=== PATIENT | male | born 1955 | race Caucasian/White ===

== ENCOUNTER 2017-12-21 15:17 | Emergency (ER) | payer MEDICARE, MEDICAID ==
[2017-12-21 15:57] LABS: ADD MAN DIFF? NO
[2017-12-21 16:01] LABS: BASO % 0 % (0-3); EOS # 0.2 x10^3/uL (0.0-0.7); EOS % 3 % (0-3); HEMATOCRIT 38.6 % (39.0-53.0); HEMOGLOBIN 12.5 g/dL (13.0-17.5); LYMPH % 19 % (24-48); MEAN CORPUSCULAR HEMOGLOBIN 28 pg (25-35); MEAN CORPUSCULAR HGB CONC 32 g/dL (31-37); MEAN CORPUSCULAR VOLUME 86 fL (79-100); MONO # 0.6 x10^3/uL (0.0-1.1); MONO % 12 % (0-9); NEUT # 3.3 x10^3uL (1.8-7.7); NEUT % 65 % (31-73); PLATELET COUNT 129 x10^3/uL (140-400); WHITE BLOOD COUNT 5.1 x10^3/uL (4.0-11.0)
[2017-12-21 16:17] LABS: ANION GAP 11 (6-14); BLOOD UREA NITROGEN 26 mg/dL (8-26); BUN/CREATININE RATIO 19 (6-20); CARBON DIOXIDE 28 mmol/L (21-32); CHLORIDE 104 mmol/L (98-107); CREATININE 1.4 mg/dL (0.7-1.3); GLUCOSE 143 mg/dL (70-99); POTASSIUM 4.7 mmol/L (3.5-5.1); SODIUM 143 mmol/L (136-145)
[2017-12-21 16:20] LABS: INR 1.6 (0.8-1.1); PROTHROMBIN TIME PATIENT 17.8 SEC (11.7-14.0)
[2017-12-21 16:22] LABS: ALBUMIN 3.8 g/dL (3.4-5.0); ALBUMIN/GLOBULIN RATIO 1.1 (1.0-1.7); ALK PHOS 98 U/L (46-116); ALT (SGPT) 19 U/L (16-63); AST (SGOT) 23 U/L (15-37); TOTAL BILIRUBIN 0.5 mg/dL (0.2-1.0); TOTAL PROTEIN 7.3 g/dL (6.4-8.2)
[2017-12-21] MEDS: ASPIRIN CHEWABLE 81 MG TABLET. PO (16:24)
[2017-12-21 16:25] LABS: TROPONINI < 0.017 ng/mL (0.000-0.055)
== END 2017-12-21 18:15 | disposition home or self-care (01) ==
LOC: ER 15:17
DX: R07.89 Other chest pain (principal); E11.9 Type 2 diabetes mellitus without complications; E78.00 Pure hypercholesterolemia, unspecified; I10 Essential (primary) hypertension; Z95.2 Presence of prosthetic heart valve; Z79.01 Long term (current) use of anticoagulants; Z88.8 Allergy status to other drugs, medicaments and biological substances
CPT/HCPCS: 36415; 71045; 80053; 84484; 85025; 85610; 93005; 99285-25

== ENCOUNTER 2018-03-14 13:41 | Emergency (ER) | payer MEDICARE, MEDICAID ==
[2018-03-14 14:42] LABS: ADD MAN DIFF? NO
[2018-03-14 14:45] LABS: BASO % 1 % (0-3); EOS # 0.1 x10^3/uL (0.0-0.7); EOS % 3 % (0-3); HEMATOCRIT 35.3 % (39.0-53.0); HEMOGLOBIN 11.3 g/dL (13.0-17.5); LYMPH # 0.7 x10^3/uL (1.0-4.8); LYMPH % 19 % (24-48); MEAN CORPUSCULAR HEMOGLOBIN 27 pg (25-35); MEAN CORPUSCULAR HGB CONC 32 g/dL (31-37); MEAN CORPUSCULAR VOLUME 83 fL (79-100); MONO # 0.5 x10^3/uL (0.0-1.1); MONO % 12 % (0-9); NEUT # 2.5 x10^3uL (1.8-7.7); NEUT % 66 % (31-73); PLATELET COUNT 106 x10^3/uL (140-400); RED BLOOD COUNT 4.25 x10^6/uL (4.30-5.70); RED CELL DISTRIBUTION WIDTH 14.6 % (11.5-14.5); WHITE BLOOD COUNT 3.8 x10^3/uL (4.0-11.0)
[2018-03-14 14:55] LABS: INR 2.9 (0.8-1.1); PARTIAL THROMBOPLASTIN TIME 38 SEC (24-38); PROTHROMBIN TIME PATIENT 29.6 SEC (11.7-14.0)
[2018-03-14] MEDS: IV NORMAL SALINE 1000ML BAG 1,000 ML IV (14:55)
[2018-03-14 15:00] LABS: ANION GAP 5 (6-14); BLOOD UREA NITROGEN 35 mg/dL (8-26); BUN/CREATININE RATIO 21 (6-20); CALCIUM 8.7 mg/dL (8.5-10.1); CARBON DIOXIDE 31 mmol/L (21-32); CHLORIDE 104 mmol/L (98-107); CREATININE 1.7 mg/dL (0.7-1.3); GFR 40.7; GLUCOSE 108 mg/dL (70-99); POTASSIUM 4.7 mmol/L (3.5-5.1); SODIUM 140 mmol/L (136-145)
[2018-03-14 15:06] LABS: ALBUMIN 3.6 g/dL (3.4-5.0); ALBUMIN/GLOBULIN RATIO 1.1 (1.0-1.7); ALK PHOS 79 U/L (46-116); ALT (SGPT) 23 U/L (16-63); AST (SGOT) 22 U/L (15-37); TOTAL BILIRUBIN 0.4 mg/dL (0.2-1.0); TOTAL PROTEIN 6.9 g/dL (6.4-8.2)
[2018-03-14 15:06] LABS: TROPONINI 0.021 ng/mL (0.000-0.055)
[2018-03-14 15:12] LABS: NT-PRO BNP 1478 pg/mL (0-124)
[2018-03-14 15:13] LABS: THYROID STIM HORMONE (TSH) 3.121 uIU/mL (0.358-3.74)
[2018-03-14] MEDS: DIPHTH,PERTUSS(ACELL),TET TOX 0.5 ML DISP.SYRIN. VAX IM (15:45)
== END 2018-03-14 16:15 | disposition home or self-care (01) ==
LOC: ER 13:41
DX: I95.1 Orthostatic hypotension (principal); S51.012A Laceration without foreign body of left elbow, initial encounter; N28.9 Disorder of kidney and ureter, unspecified; E11.9 Type 2 diabetes mellitus without complications; E78.00 Pure hypercholesterolemia, unspecified; I10 Essential (primary) hypertension; F32.9 Major depressive disorder, single episode, unspecified; Z90.49 Acquired absence of other specified parts of digestive tract; Z88.8 Allergy status to other drugs, medicaments and biological substances; Z95.2 Presence of prosthetic heart valve; W18.39XA Other fall on same level, initial encounter; Y93.89 Activity, other specified; Y92.89 Other specified places as the place of occurrence of the external cause; Y99.8 Other external cause status
CPT/HCPCS: 36415; 70450; 80053; 83735; 83880; 84443; 84484; 85025; 85610; 85730; 90471; 90715; 93005; 96360; 99285-25; J7030

== ENCOUNTER 2018-06-14 13:13 | Emergency (ER) | payer MEDICARE, MEDICAID ==
[2018-06-14 13:55] LABS: ADD MAN DIFF? NO
[2018-06-14 13:57] LABS: BASO % 0 % (0-3); EOS # 0.1 x10^3/uL (0.0-0.7); EOS % 2 % (0-3); HEMATOCRIT 32.7 % (39.0-53.0); HEMOGLOBIN 10.9 g/dL (13.0-17.5); LYMPH # 0.5 x10^3/uL (1.0-4.8); LYMPH % 18 % (24-48); MEAN CORPUSCULAR HEMOGLOBIN 29 pg (25-35); MEAN CORPUSCULAR HGB CONC 33 g/dL (31-37); MEAN CORPUSCULAR VOLUME 86 fL (79-100); MONO # 0.3 x10^3/uL (0.0-1.1); MONO % 12 % (0-9); NEUT # 1.8 x10^3uL (1.8-7.7); NEUT % 68 % (31-73); PLATELET COUNT 80 x10^3/uL (140-400); RED BLOOD COUNT 3.82 x10^6/uL (4.30-5.70); RED CELL DISTRIBUTION WIDTH 15.3 % (11.5-14.5); WHITE BLOOD COUNT 2.6 x10^3/uL (4.0-11.0)
[2018-06-14 14:07] LABS: ANION GAP 8 (6-14); BLOOD UREA NITROGEN 28 mg/dL (8-26); BUN/CREATININE RATIO 19 (6-20); CALCIUM 8.3 mg/dL (8.5-10.1); CARBON DIOXIDE 27 mmol/L (21-32); CHLORIDE 107 mmol/L (98-107); CREATININE 1.5 mg/dL (0.7-1.3); GLUCOSE 112 mg/dL (70-99); SODIUM 142 mmol/L (136-145)
[2018-06-14 14:10] LABS: PROTHROMBIN TIME PATIENT 48.9 SEC (11.7-14.0)
[2018-06-14 14:13] LABS: ALBUMIN 3.6 g/dL (3.4-5.0); ALBUMIN/GLOBULIN RATIO 1.2 (1.0-1.7); ALK PHOS 80 U/L (46-116); ALT (SGPT) 30 U/L (16-63); AST (SGOT) 28 U/L (15-37); TOTAL BILIRUBIN 0.5 mg/dL (0.2-1.0); TOTAL PROTEIN 6.7 g/dL (6.4-8.2)
[2018-06-14 14:17] LABS: INR 5.5 (0.8-1.1)
[2018-06-14 14:18] LABS: TROPONINI < 0.017 ng/mL (0.000-0.055)
[2018-06-14 14:20] LABS: PLT ESTIMATE DECREASED (ADEQUATE)
[2018-06-14 14:21] LABS: POLYCHROMASIA SLIGHT
[2018-06-14 14:41] LABS: NT-PRO BNP 5050 pg/mL (0-124)
[2018-06-14 14:41] LABS: CKMB INDEX 1.8 % (0-4); CKMB MASS 2.2 ng/mL (0.0-3.6); CREATINE KINASE 122 U/L (39-308)
== END 2018-06-14 16:16 | disposition home or self-care (01) ==
LOC: ER 13:13
DX: I11.0 Hypertensive heart disease with heart failure (principal); I50.9 Heart failure, unspecified; E11.9 Type 2 diabetes mellitus without complications; F32.9 Major depressive disorder, single episode, unspecified; Q24.9 Congenital malformation of heart, unspecified; Z90.49 Acquired absence of other specified parts of digestive tract; Z88.8 Allergy status to other drugs, medicaments and biological substances
CPT/HCPCS: 36415; 71045; 80053; 82553; 83880; 84484; 85025; 85610; 93005; 99285-25

== ENCOUNTER 2018-11-02 05:32 | Inpatient (IN) | payer MEDICARE, MEDICAID ==
[~2018-11-02] VITALS: Ht 154.9 cm; Wt 86.2 kg
[~2018-11-02 05:32] MED LIST: AMLO5TAB7 PO; ATOR10TA PO; BUPR100T6 PO; CHOL10003 PO; FLUT15OI2 TP; FLUT16SP NS; FLUT16SP2 NS; FLUT1DIS IH; FLUT1DIS3 IH; FURO40TA4 PO; GLIM2TAB2 PO; GLIP5TAB10 PO; HYDR-2769 PO; LOSA100T14 PO; LURA40TA PO; METF10007 PO; METO25TA4 PO; OXYC-411 PO; POTA10TA12 PO; POTA20TA84 PO; QUIN20TA17 PO; RISP1TAB10 PO; SERT100T8 PO; SIMV20TA3 PO; TRAM50TA PO; TRAZ-85 PO; WARF10TA40 PO; WARF10TA45 PO
[2018-11-02] MEDS ORDERED: IV NORMAL SALINE 1000ML BAG 1,000 ML IV SCH (06:10)
[2018-11-02] MEDS ORDERED: MORPHINE SULFATE 4 MG/ML VIAL. IV/SQ PRN (06:15)
--- NOTE | 2018-11-02 06:15 | PHYS DOC ---
Past Medical History Past Medical History: Depression, Diabetes-Type II, High Cholesterol, Hypertension, Other Additional Past Medical Histor: heart valve defect from Past Surgical History: Cholecystectomy, Other Additional Past Surgical Histo: AORTIC AND PULMONARY VALVE REPLACEMENT x3; hernia Alcohol Use: None Drug Use: None Adult General Chief Complaint Chief Complaint: "I'm sick" [facility] HPI Patient is a 63-year-old male who presents to the emergency department for evaluation. He states the past 3-4 days, he just hasn't felt well. He states he had diarrhea as well as some nausea and vomiting for 4 days, but that ended on Tuesday. He has not had any black or bloody stools. He states he has had some generalized abdominal discomfort. He is not having abdominal pain at this time. He states yesterday he developed a headache, and he has not had headaches before. He states his headache is global. He has not had any vision changes or photophobia, numbness or weakness. He has not had any chest pain or shortness of breath. He has had nasal congestion. Has not really had myalgias. There are no alleviating or exacerbating factors to the patient's symptoms. Review of Systems Review of Systems Constitutional: Denies fever or chills [] Eyes: Denies change in visual acuity, redness, or eye pain [] HENT: Denies otalgia or sore throat [] Respiratory: Denies cough or shortness of breath [] Cardiovascular:The patient denies any shortness of breath, chest pain, palpitations, or orthopnea [] GI: No additional information not addressed in HPI [] : Denies dysuria or hematuria [] Musculoskeletal: Denies back pain or joint pain [] Integument: Denies rash or skin lesions [] Neurologic: Denies focal weakness or sensory changes [] Endocrine: Denies polyuria or polydipsia [] All other systems were reviewed and found to be within normal limits, except as documented in this note. Current Medications Current Medications Current Medications Medications (Trade) Dose Ordered Sig/Esdras Start Time Stop Time Status Last Admin Dose Admin Acetaminophen (Tylenol) 1,000 mg 1X ONCE 11/02/18 07:45 11/02/18 07:47 DC 11/02/18 07:49 1,000 MG Morphine Sulfate (Morphine Sulfate) 4 mg PRN Q15MIN PRN 11/02/18 06:15 11/03/18 06:14 Sodium Chloride 1,000 ml @ 1,000 mls/hr Q1H 11/02/18 06:10 11/02/18 07:09 DC 11/02/18 07:47 1,000 MLS/HR Allergies Allergies Allergies Coded Allergies Type Severity Reaction Last Updated Verified zolpidem Allergy Intermediate 11/02/18 Yes Physical Exam Physical Exam PHYSICAL EXAM: CONSTITUTIONAL: Well developed, well nourished HEAD: normocephalic, atraumatic. There is mild diffuse tenderness to palpation to the scalp, including the temporal area bilaterally, but the temporal arteries are pulsatile, and not particularly tender. EENT: PERRL, EOMI. there is no photophobia. Conjunctivae normal color, sclerae non-icteric; moist mucous membranes. NECK: Supple, non-tender; no meningismus. LUNGS: Lungs CTA, breathing even and unlabored. Normal air movement. HEART: Regular rate and rhythm, there is a metallic heart valve sound and a soft systolic ejection murmur CHEST: No deformity; non-tender ABDOMEN: The abdomen is soft, and non-tender, no masses or bruits. Normal bowel sounds are present. EXTREM: Normal ROM; no deformity, no calf tenderness. Normal pulses palpable in all extremities. There is no pedal edema. SKIN: No rash; no diaphoresis NEURO: Alert; normal speech and cognition; CN's grossly intact; strength grossly intact without focal deficit. Coordination is normal. BACK: No CVA TTP. Current Patient Data Vital Signs Vital Signs Date Time Temp Pulse Resp B/P (MAP) Pulse Ox O2 Delivery O2 Flow Rate FiO2 11/02/18 05:35 98.9 80 16 182/90 (120) 96 Room Air 98.9 Lab Values Laboratory Tests Test 11/02/18 06:30 11/02/18 07:00 11/02/18 07:54 White Blood Count 4.9 x10^3/uL (4.0-11.0) Red Blood Count 4.47 x10^6/uL (4.30-5.70) Hemoglobin 12.1 g/dL (13.0-17.5) L Hematocrit 37.4 % (39.0-53.0) L Mean Corpuscular Volume 84 fL (79-100) Mean Corpuscular Hemoglobin 27 pg (25-35) Mean Corpuscular Hemoglobin Concent 32 g/dL (31-37) Red Cell Distribution Width 15.4 % (11.5-14.5) H Platelet Count 111 x10^3/uL (140-400) L Neutrophils (%) (Auto) 82 % (31-73) H Lymphocytes (%) (Auto) 8 % (24-48) L Monocytes (%) (Auto) 8 % (0-9) Eosinophils (%) (Auto) 2 % (0-3) Basophils (%) (Auto) 0 % (0-3) Neutrophils # (Auto) 4.0 x10^3uL (1.8-7.7) Lymphocytes # (Auto) 0.4 x10^3/uL (1.0-4.8) L Monocytes # (Auto) 0.4 x10^3/uL (0.0-1.1) Eosinophils # (Auto) 0.1 x10^3/uL (0.0-0.7) Basophils # (Auto) 0.0 x10^3/uL (0.0-0.2) Erythrocyte Sedimentation Rate 15 (0-15) Prothrombin Time 26.2 SEC (11.7-14.0) H Prothrombin Time INR 2.5 (0.8-1.1) H Sodium Level 140 mmol/L (136-145) Potassium Level 3.9 mmol/L (3.5-5.1) Chloride Level 107 mmol/L (98-107) Carbon Dioxide Level 23 mmol/L (21-32) Anion Gap 10 (6-14) Blood Urea Nitrogen 22 mg/dL (8-26) Creatinine 1.5 mg/dL (0.7-1.3) H Estimated GFR (Cockcroft-Gault) 47.0 BUN/Creatinine Ratio 15 (6-20) Glucose Level 155 mg/dL (70-99) H Calcium Level 9.4 mg/dL (8.5-10.1) Total Bilirubin 0.6 mg/dL (0.2-1.0) Aspartate Amino Transferase (AST) 24 U/L (15-37) Alanine Aminotransferase (ALT) 28 U/L (16-63) Alkaline Phosphatase 118 U/L (46-116) H Troponin I Quantitative 0.042 ng/mL (0.000-0.055) C-Reactive Protein, Quantitative 3.1 mg/L (0-3.3) QR-Dtc-O-Type Natriuretic Peptide 4409 pg/mL (0-124) H Total Protein 7.4 g/dL (6.4-8.2) Albumin 3.9 g/dL (3.4-5.0) Albumin/Globulin Ratio 1.1 (1.0-1.7) Lipase 775 U/L (73-393) H [place] Level 1.3 mmol/L (0.6-1.2) H [place] Last Dose Date Unknown [place] Last Dose Time Unknown Urine Collection Type Unknown Urine Color Yellow Urine Clarity Clear Urine pH 6.0 Urine Specific [place] 1.025 Urine Protein 30 mg/dL (NEG-TRACE) Urine Glucose (UA) Negative mg/dL (NEG) Urine Ketones (Stick) Negative mg/dL (NEG) Urine Blood Small (NEG) Urine Nitrite Negative (NEG) Urine Bilirubin Negative (NEG) Urine Urobilinogen Dipstick 0.2 mg/dL (0.2 mg/dL) Urine Leukocyte Esterase Trace (NEG) Urine RBC 3-5 /HPF (0-2) Urine WBC 1-4 /HPF (0-4) Urine Renal Epithelial Cells Occ /LPF Urine Bacteria Few /HPF (0-FEW) Urine Hyaline Casts Few /HPF Urine Mucus Mod /LPF Influenza Type A Antigen Negative (NEGATIVE) Influenza Type B Antigen Negative (NEGATIVE) Laboratory Tests 11/02/18 06:30 Laboratory Tests 11/02/18 06:30 EKG EKG [Probable normal sinus rhythm at a rate of 70 beats for minute with frequent APCs and occasional PVCs, left axis deviation, right bundle-branch block. Nonspecific ST/T changes laterally. EKG is not significantly changed compared to patient's prior EKG from May 2018.] Radiology/Procedures Radiology/Procedures [PROCEDURE: CT HEAD WO CONTRAST CT of the head without contrast, 11/02/2018: HISTORY: Headache Comparison is made to a study from 03/14/2018. The ventricles are within normal limits in size. There is no shift of the midline structures. There is no evidence of acute intracranial hemorrhage or mass effect. There is calcific plaque in the distal internal carotid arteries. IMPRESSION: No acute intracranial abnormality is detected. ] PROCEDURE: PORTABLE CHEST 1V Portable chest, 11/02/2018: HISTORY: Weakness Comparison is made to a study from 06/14/2018. There has been a previous median sternotomy. The heart is enlarged. There is calcific plaquing the aorta. The pulmonary vascularity is normal. No pulmonary infiltrate is seen. There is mild pleural thickening laterally on the left. There is no evidence of pleural fluid. IMPRESSION: 1. Cardiomegaly and aortic atherosclerosis. 2. No acute cardiopulmonary abnormality is detected. Course & Med Decision Making Course & Med Decision Making Pertinent Labs and Imaging studies reviewed. (See chart for details) [8:40 AM: The patient's condition remained stable he is not feeling much better and still feels generally ill. I do not believe that he has meningitis, given the lack of meningismus, and the duration of symptoms. Also, he is on warfarin, and I do not believe that he would have a subtle subarachnoid hemorrhage with a negative head CT. I do not believe he needs an emergent lumbar puncture which is unable to be performed given his elevated INR anyways. However he does appear to have pancreatitis which may explain his malaise and illness. Given his underlying diabetes and chronic illnesses, I discussed the case with the hospitalist who will admit the patient for further evaluation and treatment.] Dragon Disclaimer Dragon Disclaimer This electronic medical record was generated, in whole or in part, using a voice recognition dictation system. Departure Departure Impression: Primary Impression: Pancreatitis Additional Impressions: Headache Anticoagulated on warfarin Admitting Physician: Xie. Petersen Condition: STABLE Referrals: RAYMON BATRES MD (PCP) Problem Qualifiers BERTHA JARA MD Nov 02, 2018 06:15
[2018-11-02 06:47] LABS: BASO % 0 % (0-3); EOS # 0.1 x10^3/uL (0.0-0.7); EOS % 2 % (0-3); HEMATOCRIT 37.4 % (39.0-53.0); HEMOGLOBIN 12.1 g/dL (13.0-17.5); LYMPH # 0.4 x10^3/uL (1.0-4.8); LYMPH % 8 % (24-48); MEAN CORPUSCULAR HEMOGLOBIN 27 pg (25-35); MEAN CORPUSCULAR HGB CONC 32 g/dL (31-37); MEAN CORPUSCULAR VOLUME 84 fL (79-100); MONO # 0.4 x10^3/uL (0.0-1.1); MONO % 8 % (0-9); NEUT % 82 % (31-73); PLATELET COUNT 111 x10^3/uL (140-400); RED BLOOD COUNT 4.47 x10^6/uL (4.30-5.70); RED CELL DISTRIBUTION WIDTH 15.4 % (11.5-14.5); WHITE BLOOD COUNT 4.9 x10^3/uL (4.0-11.0)
[2018-11-02 06:53] LABS: LI 1.3 mmol/L (0.6-1.2)
[2018-11-02 06:54] LABS: CALCIUM 9.4 mg/dL (8.5-10.1); CREATININE 1.5 mg/dL (0.7-1.3); POTASSIUM 3.9 mmol/L (3.5-5.1)
[2018-11-02 06:55] LABS: PROTHROMBIN TIME PATIENT 26.2 SEC (11.7-14.0)
[2018-11-02 07:00] LABS: ALBUMIN 3.9 g/dL (3.4-5.0); ALBUMIN/GLOBULIN RATIO 1.1 (1.0-1.7); TOTAL BILIRUBIN 0.6 mg/dL (0.2-1.0); TOTAL PROTEIN 7.4 g/dL (6.4-8.2)
[2018-11-02 07:11] LABS: C-REACTIVE PROTEIN 3.1 mg/L (0-3.3)
[2018-11-02 07:20] LABS: BILIRUBIN,URINE NEGATIVE (NEG); CLARITY,URINE CLEAR; COLOR,URINE YELLOW; NITRITE,URINE NEGATIVE (NEG); PROTEIN,URINE 30 mg/dL (NEG-TRACE); UROBILINOGEN,URINE 0.2 mg/dL (0.2 mg/dL)
[2018-11-02 07:22] LABS: HYALINE CASTS, URINE FEW /HPF
[2018-11-02 07:24] LABS: BACTERIA,URINE FEW /HPF (0-FEW)
--- NOTE | 2018-11-02 07:39 | EKG ---
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
[2018-11-02] MEDS ORDERED: ACETAMINOPHEN 500 MG TABLET PO ONE (07:45)
--- NOTE | 2018-11-02 07:45 | RAD ---
CT of the head without contrast, 11/02/2018: HISTORY: Headache Comparison is made to a study from 03/14/2018. The ventricles are within normal limits in size. There is no shift of the midline structures. There is no evidence of acute intracranial hemorrhage or mass effect. There is calcific plaque in the distal internal carotid arteries. IMPRESSION: No acute intracranial abnormality is detected. RS Compliance Statement: One or more of the following individualized dose reduction techniques were utilized for this examination: 1. Automated exposure control 2. Adjustment of the mA and/or kV according to patient size 3. Use of iterative reconstruction technique Electronically signed by: Nirmal Lucio MD (11/02/2018 7:41 AM) [facility]
--- NOTE | 2018-11-02 07:46 | RAD ---
Portable chest, 11/02/2018: HISTORY: Weakness Comparison is made to a study from 06/14/2018. There has been a previous median sternotomy. The heart is enlarged. There is calcific plaquing the aorta. The pulmonary vascularity is normal. No pulmonary infiltrate is seen. There is mild pleural thickening laterally on the left. There is no evidence of pleural fluid. IMPRESSION: 1. Cardiomegaly and aortic atherosclerosis. 2. No acute cardiopulmonary abnormality is detected. Electronically signed by: Nirmal Lucio MD (11/02/2018 7:42 AM) [facility]
[2018-11-02 08:20] LABS: INFLUENZA A PATIENT NEGATIVE (NEGATIVE); INFLUENZA B PATIENT NEGATIVE (NEGATIVE)
[2018-11-02] MEDS ORDERED: ONDANSETRON PF 4 MG/2 ML VIAL. IV PRN (09:00)
[2018-11-02] MEDS: MORPHINE SULFATE 4 MG/ML VIAL. IV PRN ×2 (09:20→14:11)
[2018-11-02 11:00] VITALS: BP 144/82
--- NOTE | 2018-11-02 13:25 | EKG ---
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
[2018-11-02 15:00] VITALS: BP 138/78
[2018-11-02] MEDS ORDERED: traMADol 50 MG TABLET PO PRN (15:15)
[2018-11-02] MEDS ORDERED: LABETALOL 20 MG/4 ML DISP.SYRIN. IVP PRN (15:15)
[2018-11-02] MEDS ORDERED: ACETAMINOPHEN 325 MG TABLET. PO PRN (15:15)
[2018-11-02] MEDS ORDERED: MORPHINE SULFATE 2 MG/ML VIAL. IV PRN (15:15)
[2018-11-02] MEDS ORDERED: DEXTROSE 50% 25 GM / 50ML DISP.SYRIN. IV PRN (15:15)
[2018-11-02] MEDS ORDERED: oxyCODONE/APAP 10/325 1 TAB TABLET PO PRN (15:15)
[2018-11-02] MEDS ORDERED: DOCUSATE SODIUM 100 MG CAPSULE. PO PRN (15:15)
--- NOTE | 2018-11-02 15:17 | PDOC1 ---
History and Physical Date of Admission Date of Admission 11/02/18 Identification/Chief Complaint Chief Complaint not feeling good, headache Source Source: Chart review, Patient History of Present Illness History of Present Illness HPI HPI Patient is a 63-year-old male who presents to the emergency department for evaluation of headache. He said he has had headache locating on top head for 3 days, constant, no vision , hearing change or ext neurologic change. He also had has N/V and diarrhea daily x5ds. last time was on Tuesday. He denies abd pain ,but said feels abd uncomfortable. He denies black or dark stool. no fever, chills, cough, sob, or chest pain. head CT neg. EKG showed afib/aflutter, seems new comapared to a few months ago. on warfarin for aortic and pulmonary valve replacement. neg flu. Past Medical History Cardiovascular: HTN, Hyperlipidemia, Other Pulmonary: Other CENTRAL NERVOUS SYSTEM: Other GI: No pertinent hx Heme/Onc: No pertinent hx Hepatobiliary: Hep A/B/C Psych: Bipolar, Depression Rheumatologic: No pertinent hx Infectious disease: No pertinent hx Renal/: No pertinent hx Endocrine: Diabetes Past Surgical History Past Surgical History: Cholecystectomy, Hernia Repair, Other Family History Family History: Coronary Artery Disease, Diabetes, Heart Disease, Hypertension Social History Smoke: No ALCOHOL: none Drugs: Other Current Problem List Problem List Problems Medical Problems: (1) Anticoagulated on warfarin Status: Acute (2) Headache Status: Acute (3) Pancreatitis Status: Acute Current Medications Current Medications Current Medications Medications (Trade) Dose Ordered Sig/Esdras Start Time Stop Time Status Last Admin Dose Admin Acetaminophen (Tylenol) 1,000 mg 1X ONCE 11/02/18 07:45 11/02/18 07:47 DC 11/02/18 07:49 1,000 MG Morphine Sulfate (Morphine Sulfate) 4 mg PRN Q2HR PRN 11/02/18 09:00 11/03/18 08:59 11/02/18 14:11 4 MG Ondansetron HCl (Zofran) 4 mg PRN Q8HRS PRN 11/02/18 09:00 11/03/18 08:59 11/02/18 14:21 4 MG Sodium Chloride 1,000 ml @ 1,000 mls/hr Q1H 11/02/18 06:10 11/02/18 07:09 DC 11/02/18 07:47 1,000 MLS/HR Allergies Allergies Allergies Coded Allergies Type Severity Reaction Last Updated Verified zolpidem Allergy Intermediate 11/02/18 Yes ROS Review of System CONSTITUTIONAL: No fever or chills EYES: No recent changes SKIN: No rash or itching CARDIOVASCULAR: No chest pain, syncope, palpitations, or edema RESPIRATORY: No SOB or cough GASTROINTESTINAL: No nausea, vomiting or abdominal pain NEUROLOGICAL: No headaches or weakness ENDOCRINE: No cold or heat intolerance GENITOURINARY: No urgency or frequency of urination MUSCULOSKELETAL: No back pain or joint pain LYMPHATICS: No enlarged lymph nodes PSYCHIATRIC: No anxiety or depression Physical Exam Physical Exam GEN.: No apparent distress. Alert and oriented. HEENT: Head is normocephalic, atraumatic NECK: Supple. LUNGS: Clear to auscultation. HEART: RRR, S1, S2 present. Peripheral pulses intact ABDOMEN: Soft, nontender. Positive bowel sounds. EXTREMITIES: Without any cyanosis. NEUROLOGIC: Normal speech, normal tone PSYCHIATRIC: Normal affect, normal mood. SKIN: No ulcerations Vitals Vitals Vital Signs Date Time Temp Pulse Resp B/P (MAP) Pulse Ox O2 Delivery O2 Flow Rate FiO2 11/02/18 15:00 98.0 69 20 138/78 (98) 95 Room Air 98.0 Labs Labs Laboratory Tests Test 11/02/18 06:30 11/02/18 07:00 11/02/18 07:54 11/02/18 10:58 White Blood Count 4.9 x10^3/uL (4.0-11.0) Red Blood Count 4.47 x10^6/uL (4.30-5.70) Hemoglobin 12.1 g/dL (13.0-17.5) Hematocrit 37.4 % (39.0-53.0) Mean Corpuscular Volume 84 fL (79-100) Mean Corpuscular Hemoglobin 27 pg (25-35) Mean Corpuscular Hemoglobin Concent 32 g/dL (31-37) Red Cell Distribution Width 15.4 % (11.5-14.5) Platelet Count 111 x10^3/uL (140-400) Neutrophils (%) (Auto) 82 % (31-73) Lymphocytes (%) (Auto) 8 % (24-48) Monocytes (%) (Auto) 8 % (0-9) Eosinophils (%) (Auto) 2 % (0-3) Basophils (%) (Auto) 0 % (0-3) Neutrophils # (Auto) 4.0 x10^3uL (1.8-7.7) Lymphocytes # (Auto) 0.4 x10^3/uL (1.0-4.8) Monocytes # (Auto) 0.4 x10^3/uL (0.0-1.1) Eosinophils # (Auto) 0.1 x10^3/uL (0.0-0.7) Basophils # (Auto) 0.0 x10^3/uL (0.0-0.2) Erythrocyte Sedimentation Rate 15 (0-15) Prothrombin Time 26.2 SEC (11.7-14.0) Prothromb Time International Ratio 2.5 (0.8-1.1) Sodium Level 140 mmol/L (136-145) Potassium Level 3.9 mmol/L (3.5-5.1) Chloride Level 107 mmol/L (98-107) Carbon Dioxide Level 23 mmol/L (21-32) Anion Gap 10 (6-14) Blood Urea Nitrogen 22 mg/dL (8-26) Creatinine 1.5 mg/dL (0.7-1.3) Estimated GFR (Cockcroft-Gault) 47.0 BUN/Creatinine Ratio 15 (6-20) Glucose Level 155 mg/dL (70-99) Calcium Level 9.4 mg/dL (8.5-10.1) Total Bilirubin 0.6 mg/dL (0.2-1.0) Aspartate Amino Transf (AST/SGOT) 24 U/L (15-37) Alanine Aminotransferase (ALT/SGPT) 28 U/L (16-63) Alkaline Phosphatase 118 U/L (46-116) Troponin I Quantitative 0.042 ng/mL (0.000-0.055) C-Reactive Protein, Quantitative 3.1 mg/L (0-3.3) KZ-Npr-K-Type Natriuretic Peptide 4409 pg/mL (0-124) Total Protein 7.4 g/dL (6.4-8.2) Albumin 3.9 g/dL (3.4-5.0) Albumin/Globulin Ratio 1.1 (1.0-1.7) Lipase 775 U/L (73-393) [place] Level 1.3 mmol/L (0.6-1.2) [place] Last Dose Date Unknown [place] Last Dose Time Unknown Urine Collection Type Unknown Urine Color Yellow Urine Clarity Clear Urine pH 6.0 Urine Specific [place] 1.025 Urine Protein 30 mg/dL (NEG-TRACE) Urine Glucose (UA) Negative mg/dL (NEG) Urine Ketones (Stick) Negative mg/dL (NEG) Urine Blood Small (NEG) Urine Nitrite Negative (NEG) Urine Bilirubin Negative (NEG) Urine Urobilinogen Dipstick 0.2 mg/dL (0.2 mg/dL) Urine Leukocyte Esterase Trace (NEG) Urine RBC 3-5 /HPF (0-2) Urine WBC 1-4 /HPF (0-4) Urine Renal Epithelial Cells Occ /LPF Urine Bacteria Few /HPF (0-FEW) Urine Hyaline Casts Few /HPF Urine Mucus Mod /LPF Influenza Type A Antigen Negative (NEGATIVE) Influenza Type B Antigen Negative (NEGATIVE) Glucose (Fingerstick) 138 mg/dL (70-99) Laboratory Tests Test 11/02/18 06:30 11/02/18 07:00 11/02/18 07:54 11/02/18 10:58 White Blood Count 4.9 x10^3/uL (4.0-11.0) Red Blood Count 4.47 x10^6/uL (4.30-5.70) Hemoglobin 12.1 g/dL (13.0-17.5) Hematocrit 37.4 % (39.0-53.0) Mean Corpuscular Volume 84 fL (79-100) Mean Corpuscular Hemoglobin 27 pg (25-35) Mean Corpuscular Hemoglobin Concent 32 g/dL (31-37) Red Cell Distribution Width 15.4 % (11.5-14.5) Platelet Count 111 x10^3/uL (140-400) Neutrophils (%) (Auto) 82 % (31-73) Lymphocytes (%) (Auto) 8 % (24-48) Monocytes (%) (Auto) 8 % (0-9) Eosinophils (%) (Auto) 2 % (0-3) Basophils (%) (Auto) 0 % (0-3) Neutrophils # (Auto) 4.0 x10^3uL (1.8-7.7) Lymphocytes # (Auto) 0.4 x10^3/uL (1.0-4.8) Monocytes # (Auto) 0.4 x10^3/uL (0.0-1.1) Eosinophils # (Auto) 0.1 x10^3/uL (0.0-0.7) Basophils # (Auto) 0.0 x10^3/uL (0.0-0.2) Erythrocyte Sedimentation Rate 15 (0-15) Prothrombin Time 26.2 SEC (11.7-14.0) Prothromb Time International Ratio 2.5 (0.8-1.1) Sodium Level 140 mmol/L (136-145) Potassium Level 3.9 mmol/L (3.5-5.1) Chloride Level 107 mmol/L (98-107) Carbon Dioxide Level 23 mmol/L (21-32) Anion Gap 10 (6-14) Blood Urea Nitrogen 22 mg/dL (8-26) Creatinine 1.5 mg/dL (0.7-1.3) Estimated GFR (Cockcroft-Gault) 47.0 BUN/Creatinine Ratio 15 (6-20) Glucose Level 155 mg/dL (70-99) Calcium Level 9.4 mg/dL (8.5-10.1) Total Bilirubin 0.6 mg/dL (0.2-1.0) Aspartate Amino Transf (AST/SGOT) 24 U/L (15-37) Alanine Aminotransferase (ALT/SGPT) 28 U/L (16-63) Alkaline Phosphatase 118 U/L (46-116) Troponin I Quantitative 0.042 ng/mL (0.000-0.055) C-Reactive Protein, Quantitative 3.1 mg/L (0-3.3) LE-Ayx-F-Type Natriuretic Peptide 4409 pg/mL (0-124) Total Protein 7.4 g/dL (6.4-8.2) Albumin 3.9 g/dL (3.4-5.0) Albumin/Globulin Ratio 1.1 (1.0-1.7) Lipase 775 U/L (73-393) [place] Level 1.3 mmol/L (0.6-1.2) [place] Last Dose Date Unknown [place] Last Dose Time Unknown Urine Collection Type Unknown Urine Color Yellow Urine Clarity Clear Urine pH 6.0 Urine Specific [place] 1.025 Urine Protein 30 mg/dL (NEG-TRACE) Urine Glucose (UA) Negative mg/dL (NEG) Urine Ketones (Stick) Negative mg/dL (NEG) Urine Blood Small (NEG) Urine Nitrite Negative (NEG) Urine Bilirubin Negative (NEG) Urine Urobilinogen Dipstick 0.2 mg/dL (0.2 mg/dL) Urine Leukocyte Esterase Trace (NEG) Urine RBC 3-5 /HPF (0-2) Urine WBC 1-4 /HPF (0-4) Urine Renal Epithelial Cells Occ /LPF Urine Bacteria Few /HPF (0-FEW) Urine Hyaline Casts Few /HPF Urine Mucus Mod /LPF Influenza Type A Antigen Negative (NEGATIVE) Influenza Type B Antigen Negative (NEGATIVE) Glucose (Fingerstick) 138 mg/dL (70-99) VTE Prophylaxis Ordered VTE Prophylaxis Devices: Yes VTE Pharmacological Prophylaxi: No Assessment/Plan Assessment/Plan headache, tension headache likely recent N/V diarrhea, 3/3 gastroenteritis likely, resolved dm2 htn hld h/o heart valve defect since , s/p aortic and pulmonary valve replacement x3, on warfarin new afib oN EKG brad, vs ckd plan: card consult given abnormal EKG, add tele check echo hold lasix, acei for today, consider resume tmr hold metformin, ssi cont other home meds protonix daily cont warfarin , INR daily PTOT head ct neg, flu neg. CORAL CRUZ MD Nov 02, 2018 15:17
[2018-11-02] MEDS ORDERED: WARFARIN 5 MG TABLET. PO SCH (16:00)
[2018-11-02] MEDS ORDERED: WARFARIN 3 MG TABLET. PO ONE (16:00)
[2018-11-02] MEDS: amLODIPine BESYLATE 5 MG TABLET PO SCH (16:00)
[2018-11-02] MEDS: PANTOPRAZOLE 40 MG TABLET.DR. PO SCH (16:30)
--- NOTE | 2018-11-02 16:44 | CARD ---
MR#: [id number] Date of Study: 11/02/2018 Ordering Physician: CORAL CRUZ, Referring Physician: CORAL CRUZ Tech: Brooklyn Clinton RDCS APPROVED REPORT EXAM: Two-dimensional and M-mode echocardiogram with Doppler and color Doppler. Other Information Quality : Good INDICATION Aortic Valve Disease Mitral Valve Disease BNP Surgery/Intervention Status/Post Aortic Valve Replacement: Mechanical Type: [facility] Date: 2005 2D DIMENSIONS RVDd3.0 (2.9-3.5cm)Left Atrium(2D)4.3 (1.6-4.0cm) IVSd1.3 (0.7-1.1cm)Aortic Root(2D)2.6 (2.0-3.7cm) LVDd4.9 (3.9-5.9cm)LVOT Diameter2.1 (1.8-2.4cm) PWd1.3 (0.7-1.1cm)LVDs3.9 (2.5-4.0cm) FS (%) 19.1 %SV43.5 ml LVEF(%)40.0 (>50%) Aortic Valve AoV Peak Rei.330.9cm/sAoV VTI68.5cm AO Peak GR.43.8mmHgLVOT Peak Rei.110.9cm/s AO Mean GR.25mmHgAVA (VMAX)1.17cm2 RAMANA (VTI)1.30cm2 Mitral Valve MV E Inaxgpce714.6cm/sMV E Peak Gr.15mmHg MV DECEL [id number] A Slkozjfj675.5cm/s MV E Mean Gr.5mmHgMV [id number] E/A Ratio0.6MVA (PHT)2.10cm2 Tricuspid Valve TR P. Jotlfova928ow/sRAP [id number] TR Peak Gr.23wuJhBPOF66qhBw Pulmonary Vein S1 Wnusomjq02.7cm/sD2 Hyvpezim19.5cm/s LEFT VENTRICLE The left ventricle is normal size. There is mild concentric left ventricular hypertrophy. Left ventri manisha systolic function is moderately impaired. The Ejection Fraction is 40-45%. There is mild global h ypokinesis of the left ventricle. Transmitral Doppler flow pattern is Grade I-abnormal relaxation pat tern. RIGHT VENTRICLE The right ventricle is mildly dilated. The right ventricular systolic function is normal. ATRIA The left atrium is mildly dilated. The right atrium is mildly dilated. The interatrial septum is inta ct with no evidence for an atrial septal defect or patent foramen ovale as noted on 2-D or Doppler im aging. AORTIC VALVE The aortic valve is not well visualized. Doppler and Color Flow revealed trace aortic regurgitation. Calculated aortic valve area is 1.3 cm2 with maximum pressure gradient of 44 mmHg and mean pressure g radient of 25 mmHg. There is a mechanical aortic valve prosthesis. The prosthetic aortic valve is not well visualized. MITRAL VALVE The mitral valve is calcified and displays decreased opening. Mitral annular calcification is mild to moderate. There is no evidence of mitral valve prolapse. There is moderate to severe mitral valve st enosis. Calculated mitral valve area is 1.3 cm2 with maximum pressure gradient of 29 mmHg and mean pr essure gradient of 10 mmHg. Doppler and Color-flow revealed trace mitral regurgitation. TRICUSPID VALVE The tricuspid valve is normal in structure and function. Doppler and Color Flow revealed trace tricus pid regurgitation. There is moderate pulmonary hypertension. The PA pressure was estimated at 58 mmHg . There is no tricuspid valve stenosis. PULMONIC VALVE The pulmonic valve is not well visualized. Doppler and Color Flow revealed trace to mild pulmonic ying vular regurgitation. There is no pulmonic valvular stenosis. GREAT VESSELS The aortic root is normal in size. The ascending aorta is not well seen. The IVC is normal in size an d collapses >50% with inspiration. PERICARDIAL EFFUSION There is no evidence of significant pericardial effusion. Critical Notification Critical Value: No <Conclusion> Left ventricle systolic function is moderately impaired. The Ejection Fraction is 40-45%. There is mild global hypokinesis of the left ventricle. There is a mechanical aortic valve prosthesis. The prosthetic aortic valve is not well visualized. Calculated aortic valve area is 1.3 cm2 with maximum pressure gradient of 44 mmHg and mean pressure g radient of 25 mmHg. There is moderate to severe mitral valve stenosis. Calculated mitral valve area is 1.3 cm2 with maxim um pressure gradient of 29 mmHg and mean pressure gradient of 10 mmHg. Doppler and Color Flow revealed trace tricuspid regurgitation. There is moderate pulmonary hypertensi on. The PA pressure was estimated at 58 mmHg. Signed by : Chico Hong, Electronically Approved : 11/02/2018 16:42:42
[2018-11-02 17:00] VITALS: BP 145/83
[2018-11-02] MEDS: INSULIN LISPRO 300 UNITS/3 ML INSULN.PEN. SQ SCH (17:00)
[2018-11-02] MEDS ORDERED: WARF1TAB69 PO (17:18)
[2018-11-02] MEDS ORDERED: DOXE6TAB3 PO (17:18)
[2018-11-02] MEDS ORDERED: ALPR0.254 PO (17:18)
[2018-11-02] MEDS ORDERED: LITH450T PO (17:18)
[2018-11-02] MEDS ORDERED: ATOR20TA58 PO (17:18)
[2018-11-02] MEDS ORDERED: PANT20TA2 PO (17:18)
[2018-11-02] MEDS ORDERED: BUPR100T8 PO (17:18)
[2018-11-02] MEDS ORDERED: CHOL10003 PO (17:18)
[2018-11-02] MEDS ORDERED: TEMA15CA PO (17:18)
[2018-11-02] MEDS ORDERED: TEMAZEPAM 15 MG CAPSULE PO PRN (17:30)
[2018-11-02] MEDS ORDERED: ALPRAZolam 0.25 MG TABLET PO PRN (17:30)
[2018-11-02] MEDS: ONDANSETRON PF 4 MG/2 ML VIAL. IV PRN (18:00)
[2018-11-02] MEDS: metFORMIN 500 MG TABLET PO SCH (18:00)
[2018-11-02 19:15] VITALS: BP 145/88
[2018-11-02] MEDS: BUDESONIDE 0.5 MG/2 ML NEBU. NEB SCH (20:31)
[2018-11-02] MEDS: ALBUTEROL SULFATE 2.5 MG/3 ML NEBU. NEB SCH (20:31)
--- NOTE | 2018-11-02 20:46 | PDOC2 ---
CONSULT Date of Consult Date of Consult DATE: 11/02/18 TIME: 20:46 Reason for Consult Reason for Consult: Abnormal EKG Referring Physician Referring Physician: Dr. Bloom Source Source: Chart review, Patient History of Present Illness Reason for Visit: 63-year-old male with history of congenital valvular disease (? Pulmonary stenosis) who had undergone 'open heart surgeries' (?PVR, AVR) three times, first when he was 8 years old, then in the 90s and more recently in 2005 when he had mechanical aortic valve replacement, usually followed by Dr. Hung at [facility] presented complaining of 2-3 day history of headache, nausea, vomiting and diarrhea. EKG was suspicious for cardiac arrhythmia and hence we have been consulted. He denied any chest pain, orthopnea/PND, palpitations or syncope. He was seen by his primary family intervention specialist 2-3 months ago when he had usual workup including echocardiogram and stress test and was told everything was normal. Past Medical History Past Medical History Congenital valvular heart disease with multiple valve replacements as stated above Cardiovascular: HTN, Hyperlipidemia, Other Pulmonary: Other CENTRAL NERVOUS SYSTEM: Other GI: No pertinent hx Heme/Onc: No pertinent hx Hepatobiliary: Hep A/B/C Psych: Bipolar, Depression Musculoskeletal: low back pain, Osteoarthritis Rheumatologic: No pertinent hx Infectious disease: No pertinent hx Renal/: No pertinent hx Endocrine: Diabetes Past Surgical History Past Surgical History Pulmonary and aortic valve replacement Past Surgical History: Cholecystectomy, Hernia Repair, Other Family History Family History: Coronary Artery Disease, Diabetes, Heart Disease, Hypertension Social History No ALCOHOL: none Drugs: Other Lives: with Family Current Problem List Problem List Problems Medical Problems: (1) Anticoagulated on warfarin Status: Acute (2) Headache Status: Acute (3) Pancreatitis Status: Acute Current Medications Current Medications Current Medications Morphine Sulfate (Morphine Sulfate) 4 mg PRN Q15MIN PRN IV/SQ PAIN GREATER THAN 3/10; Start 11/02/18 at 06:15; Stop 11/02/18 at 08:57; Status DC Sodium Chloride 1,000 ml @ 1,000 mls/hr Q1H IV Last administered on 11/02/18at 07:47; Start 11/02/18 at 06:10; Stop 11/02/18 at 07:09; Status DC Acetaminophen (Tylenol) 1,000 mg 1X ONCE PO Last administered on 11/02/18at 07: 49; Start 11/02/18 at 07:45; Stop 11/02/18 at 07:47; Status DC Ondansetron HCl (Zofran) 4 mg PRN Q8HRS PRN IV NAUSEA/VOMITING Last administered on 11/02/18at 14:21; Start 11/02/18 at 09:00; Stop 11/02/18 at 16:09 ; Status DC Morphine Sulfate (Morphine Sulfate) 4 mg PRN Q2HR PRN IV PAIN Last administered on 11/02/18at 14:11; Start 11/02/18 at 09:00; Stop 11/02/18 at 16:09 ; Status DC Amlodipine Besylate (Norvasc) 5 mg DAILY PO ; Start 11/02/18 at 16:00 Atorvastatin Calcium (Lipitor) 10 mg QHS PO ; Start 11/02/18 at 21:00; Status Cancel Vitamin D (Vitamin D3) 1,000 unit DAILY PO ; Start 11/03/18 at 09:00; Stop 11/03 at 09:00; Status DC Fluticasone Propionate (Flonase) 2 spray DAILY NS ; Start 11/03/18 at 09:00 Glimepiride (Amaryl) 2 mg DAILY PO ; Start 11/03/18 at 09:00 Lurasidone HCl (Latuda) 40 mg QHS PO ; Start 11/02/18 at 21:00 Metoprolol Tartrate (Lopressor) 25 mg BID PO ; Start 11/02/18 at 21:00 Oxycodone/ Acetaminophen (Percocet 10/325) 1 tab PRN BID PRN PO SEVERE PAIN; Start 11/02/18 at 15:15 Potassium Chloride (Klor-Con) 20 meq QODAY PO ; Start 11/03/18 at 09:00 Non-Formulary Medication (Fluticasone/ Salmeterol (Advair 250-50 Diskus)) 1 puff BID IH ; Start 11/02/18 at 21:00; Status UNV Warfarin Sodium (Coumadin) 10 mg DAILY16 PO ; Start 11/02/18 at 16:00; Stop 11/02/18 at 17:36; Status DC Acetaminophen (Tylenol) 650 mg PRN Q6HRS PRN PO FEVER; Start 11/02/18 at 15:15 Ondansetron HCl (Zofran) 4 mg PRN Q6HRS PRN IV NAUSEA/VOMITING Last administered on 11/02/18at 18:00; Start 11/02/18 at 15:15 Morphine Sulfate (Morphine Sulfate) 2 mg PRN Q2HR PRN IV MODERATE TO SEVERE PAIN; Start 11/02/18 at 15:15 Tramadol HCl (Ultram) 50 mg PRN Q6HRS PRN PO MILD TO MODERATE PAIN; Start 11/02 at 15:15 Docusate Sodium (Colace) 100 mg PRN DAILY PRN PO CONSTIPATION; Start 11/02/18 at 15:15 Labetalol HCl (Normodyne Iv Push) 20 mg PRN Q2HR PRN IVP HYPERTENSION, SEE COMMENTS; Start 11/02/18 at 15:15 Pantoprazole Sodium (Protonix) 40 mg DAILYAC PO ; Start 11/02/18 at 16:30 Insulin Human Lispro (HumaLOG) 0-9 UNITS TIDWMEALS SQ ; Start 11/02/18 at 17:00 Dextrose (Dextrose 50%-Water Syringe) 12.5 gm PRN Q15MIN PRN IV SEE COMMENTS; Start 11/02/18 at 15:15 Warfarin Sodium (Coumadin Per Physician) 1 each PRN DAILY PRN MC SEE COMMENTS Last administered on 11/02/18at 16:26; Start 11/02/18 at 16:15; Stop 11/02/18 at 17:35; Status DC Albuterol Sulfate (Ventolin Neb Soln) 2.5 mg Q6HRS NEB Last administered on 11/02/18at 20:31; Start 11/02/18 at 18:00 Budesonide (Pulmicort) 0.5 mg RTBID NEB Last administered on 11/02/18at 20:31; Start 11/02/18 at 20:00 Alprazolam (Xanax) 0.25 mg PRN BID PRN PO ANXIETY; Start 11/02/18 at 17:30 Atorvastatin Calcium (Lipitor) 20 mg HS PO ; Start 11/02/18 at 21:00 Bupropion HCl (Wellbutrin Sr) 100 mg DAILYWBKFT PO ; Start 11/03/18 at 08:00 Vitamin D (Vitamin D3) 2,000 unit DAILY PO ; Start 11/03/18 at 09:00 Furosemide (Lasix) 40 mg DAILY PO ; Start 11/03/18 at 09:00 Temazepam (Restoril) 15 mg PRN QHS PRN PO INSOMNIA; Start 11/02/18 at 17:30 Warfarin Sodium (Coumadin Per Pharmacy) 1 each PRN DAILY PRN MC SEE COMMENTS; Start 11/02/18 at 17:45 Non-Formulary Medication (Doxepin Hcl (Silenor)) 6 mg HS PO ; Start 11/02/18 at 21:00; Status UNV [place] Carbonate (Lithobid) 900 mg QHS PO ; Start 11/02/18 at 21:00 Metformin HCl (Glucophage) 1,000 mg BIDWMEALS PO Last administered on at 18:00; Start 11/02/18 at 18:00 Non-Formulary Medication (Pantoprazole Sodium (Protonix)) 2 tab DAILY PO ; Start 11/03/18 at 09:00; Status UNV Lisinopril (Prinivil) 20 mg DAILY PO ; Start 11/03/18 at 09:00 Warfarin Sodium (Coumadin) 12 mg 1X WARF ONCE PO Last administered on at 18:00; Start 11/02/18 at 16:00; Stop 11/02/18 at 17:37; Status DC Active Scripts Active Metoprolol Tartrate 25 Mg Tablet 25 Mg PO BID Reported Vitamin D3 (Cholecalciferol (Vitamin D3)) 1,000 Unit Tablet 2 Tab PO DAILY Atorvastatin Calcium 20 Mg Tablet 1 Tab PO HS Bupropion Hcl Sr (Bupropion Hcl) 100 Mg Tablet.er 1 Tab PO DAILYWBKFT Silenor (Doxepin Hcl) 6 Mg Tablet 6 Mg PO HS Temazepam 15 Mg Capsule 2 Cap PO QHS PRN Protonix (Pantoprazole Sodium) 20 Mg Tablet.dr 2 Tab PO DAILY [place] Carbonate 450 Mg Tablet.er 2 Tab PO QHS Warfarin Sodium 1 Mg Tablet 2 Mg PO DAILY Alprazolam 0.25 Mg Tablet 1 Tab PO PRN BID PRN Furosemide 40 Mg Tablet 1 Tab PO DAILY Klor-Con 10 (Potassium Chloride) 10 Meq Tablet.er 20 Meq PO QODAY Oxycodone-Acetaminophen 10-325 (Oxycodone Hcl/Acetaminophen) 1 Each Tablet 1 Tab PO BID PRN Warfarin Sodium 10 Mg Tablet 10 Mg PO DAILY Metformin Hcl 1,000 Mg Tablet 1 Tab PO BID Quinapril Hcl 20 Mg Tablet 20 Mg PO DAILY Allergies Allergies: Coded Allergies: zolpidem (Verified Allergy, Intermediate, 11/02/18) ROS PSYCHOLOGICAL ROS: No: Hallucinations Eyes: No Loss of vision HEENT: YES: Heacaches; No: Epistaxis Respiratory: No: Hemoptysis, Shortness of breath Cardiovascular: No Chest Pain Gastrointestinal: Yes Nausea, Yes Vomiting, Yes Diarrhea Genitourinary: No Hematuria Neurological: No Seizures Skin: No Rash Physical Exam General: Alert, Oriented X3 HEENT: Atraumatic, PERRLA Lungs: Clear to auscultation Heart: Regular rate, Other (prosthetic aortic valve click crisp) Abdomen: Soft, No tenderness Extremities: No edema Psych/Mental Status: Mood NL Vitals VITALS Vital Signs Date Time Temp Pulse Resp B/P (MAP) Pulse Ox O2 Delivery O2 Flow Rate FiO2 11/02/18 20:33 99 Room Air 11/02/18 19:15 97.5 89 20 145/88 (107) 97.5 Labs Labs Laboratory Tests Test 11/02/18 06:30 11/02/18 07:00 11/02/18 07:54 11/02/18 10:58 White Blood Count 4.9 x10^3/uL (4.0-11.0) Red Blood Count 4.47 x10^6/uL (4.30-5.70) Hemoglobin 12.1 g/dL (13.0-17.5) Hematocrit 37.4 % (39.0-53.0) Mean Corpuscular Volume 84 fL (79-100) Mean Corpuscular Hemoglobin 27 pg (25-35) Mean Corpuscular Hemoglobin Concent 32 g/dL (31-37) Red Cell Distribution Width 15.4 % (11.5-14.5) Platelet Count 111 x10^3/uL (140-400) Neutrophils (%) (Auto) 82 % (31-73) Lymphocytes (%) (Auto) 8 % (24-48) Monocytes (%) (Auto) 8 % (0-9) Eosinophils (%) (Auto) 2 % (0-3) Basophils (%) (Auto) 0 % (0-3) Neutrophils # (Auto) 4.0 x10^3uL (1.8-7.7) Lymphocytes # (Auto) 0.4 x10^3/uL (1.0-4.8) Monocytes # (Auto) 0.4 x10^3/uL (0.0-1.1) Eosinophils # (Auto) 0.1 x10^3/uL (0.0-0.7) Basophils # (Auto) 0.0 x10^3/uL (0.0-0.2) Erythrocyte Sedimentation Rate 15 (0-15) Prothrombin Time 26.2 SEC (11.7-14.0) Prothromb Time International Ratio 2.5 (0.8-1.1) Sodium Level 140 mmol/L (136-145) Potassium Level 3.9 mmol/L (3.5-5.1) Chloride Level 107 mmol/L (98-107) Carbon Dioxide Level 23 mmol/L (21-32) Anion Gap 10 (6-14) Blood Urea Nitrogen 22 mg/dL (8-26) Creatinine 1.5 mg/dL (0.7-1.3) Estimated GFR (Cockcroft-Gault) 47.0 BUN/Creatinine Ratio 15 (6-20) Glucose Level 155 mg/dL (70-99) Calcium Level 9.4 mg/dL (8.5-10.1) Total Bilirubin 0.6 mg/dL (0.2-1.0) Aspartate Amino Transf (AST/SGOT) 24 U/L (15-37) Alanine Aminotransferase (ALT/SGPT) 28 U/L (16-63) Alkaline Phosphatase 118 U/L (46-116) Troponin I Quantitative 0.042 ng/mL (0.000-0.055) C-Reactive Protein, Quantitative 3.1 mg/L (0-3.3) HZ-Tol-H-Type Natriuretic Peptide 4409 pg/mL (0-124) Total Protein 7.4 g/dL (6.4-8.2) Albumin 3.9 g/dL (3.4-5.0) Albumin/Globulin Ratio 1.1 (1.0-1.7) Lipase 775 U/L (73-393) [place] Level 1.3 mmol/L (0.6-1.2) [place] Last Dose Date Unknown [place] Last Dose Time Unknown Urine Collection Type Unknown Urine Color Yellow Urine Clarity Clear Urine pH 6.0 Urine Specific [place] 1.025 Urine Protein 30 mg/dL (NEG-TRACE) Urine Glucose (UA) Negative mg/dL (NEG) Urine Ketones (Stick) Negative mg/dL (NEG) Urine Blood Small (NEG) Urine Nitrite Negative (NEG) Urine Bilirubin Negative (NEG) Urine Urobilinogen Dipstick 0.2 mg/dL (0.2 mg/dL) Urine Leukocyte Esterase Trace (NEG) Urine RBC 3-5 /HPF (0-2) Urine WBC 1-4 /HPF (0-4) Urine Renal Epithelial Cells Occ /LPF Urine Bacteria Few /HPF (0-FEW) Urine Hyaline Casts Few /HPF Urine Mucus Mod /LPF Influenza Type A Antigen Negative (NEGATIVE) Influenza Type B Antigen Negative (NEGATIVE) Glucose (Fingerstick) 138 mg/dL (70-99) Test 11/02/18 16:57 Glucose (Fingerstick) 130 mg/dL (70-99) Laboratory Tests Test 11/02/18 06:30 11/02/18 07:00 11/02/18 07:54 11/02/18 10:58 White Blood Count 4.9 x10^3/uL (4.0-11.0) Red Blood Count 4.47 x10^6/uL (4.30-5.70) Hemoglobin 12.1 g/dL (13.0-17.5) Hematocrit 37.4 % (39.0-53.0) Mean Corpuscular Volume 84 fL (79-100) Mean Corpuscular Hemoglobin 27 pg (25-35) Mean Corpuscular Hemoglobin Concent 32 g/dL (31-37) Red Cell Distribution Width 15.4 % (11.5-14.5) Platelet Count 111 x10^3/uL (140-400) Neutrophils (%) (Auto) 82 % (31-73) Lymphocytes (%) (Auto) 8 % (24-48) Monocytes (%) (Auto) 8 % (0-9) Eosinophils (%) (Auto) 2 % (0-3) Basophils (%) (Auto) 0 % (0-3) Neutrophils # (Auto) 4.0 x10^3uL (1.8-7.7) Lymphocytes # (Auto) 0.4 x10^3/uL (1.0-4.8) Monocytes # (Auto) 0.4 x10^3/uL (0.0-1.1) Eosinophils # (Auto) 0.1 x10^3/uL (0.0-0.7) Basophils # (Auto) 0.0 x10^3/uL (0.0-0.2) Erythrocyte Sedimentation Rate 15 (0-15) Prothrombin Time 26.2 SEC (11.7-14.0) Prothromb Time International Ratio 2.5 (0.8-1.1) Sodium Level 140 mmol/L (136-145) Potassium Level 3.9 mmol/L (3.5-5.1) Chloride Level 107 mmol/L (98-107) Carbon Dioxide Level 23 mmol/L (21-32) Anion Gap 10 (6-14) Blood Urea Nitrogen 22 mg/dL (8-26) Creatinine 1.5 mg/dL (0.7-1.3) Estimated GFR (Cockcroft-Gault) 47.0 BUN/Creatinine Ratio 15 (6-20) Glucose Level 155 mg/dL (70-99) Calcium Level 9.4 mg/dL (8.5-10.1) Total Bilirubin 0.6 mg/dL (0.2-1.0) Aspartate Amino Transf (AST/SGOT) 24 U/L (15-37) Alanine Aminotransferase (ALT/SGPT) 28 U/L (16-63) Alkaline Phosphatase 118 U/L (46-116) Troponin I Quantitative 0.042 ng/mL (0.000-0.055) C-Reactive Protein, Quantitative 3.1 mg/L (0-3.3) QF-Ktq-C-Type Natriuretic Peptide 4409 pg/mL (0-124) Total Protein 7.4 g/dL (6.4-8.2) Albumin 3.9 g/dL (3.4-5.0) Albumin/Globulin Ratio 1.1 (1.0-1.7) Lipase 775 U/L (73-393) [place] Level 1.3 mmol/L (0.6-1.2) [place] Last Dose Date Unknown [place] Last Dose Time Unknown Urine Collection Type Unknown Urine Color Yellow Urine Clarity Clear Urine pH 6.0 Urine Specific [place] 1.025 Urine Protein 30 mg/dL (NEG-TRACE) Urine Glucose (UA) Negative mg/dL (NEG) Urine Ketones (Stick) Negative mg/dL (NEG) Urine Blood Small (NEG) Urine Nitrite Negative (NEG) Urine Bilirubin Negative (NEG) Urine Urobilinogen Dipstick 0.2 mg/dL (0.2 mg/dL) Urine Leukocyte Esterase Trace (NEG) Urine RBC 3-5 /HPF (0-2) Urine WBC 1-4 /HPF (0-4) Urine Renal Epithelial Cells Occ /LPF Urine Bacteria Few /HPF (0-FEW) Urine Hyaline Casts Few /HPF Urine Mucus Mod /LPF Influenza Type A Antigen Negative (NEGATIVE) Influenza Type B Antigen Negative (NEGATIVE) Glucose (Fingerstick) 138 mg/dL (70-99) Test 11/02/18 16:57 Glucose (Fingerstick) 130 mg/dL (70-99) Assessment/Plan Assessment/Plan 1. Headache, nausea, vomiting and diarrhea: Workup and treat per IM 2. Abnormal EKG: Patient was in sinus rhythm with premature atrial complexes. He is not in atrial flutter ablation/flutter that was noted by computer read. Monitor telemetry for any significant arrhythmias. 3. 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 Suspect congenital pulmonary stenosis based on his account with more recent mechanical aortic valve replacement. INR 2.5. We will obtain records from primary family intervention specialist office. 4. Hypertension: Blood pressure slightly elevated. Resume home and hypertensives and titrate for better control. 5. Hyperlipidemia: Continue statin therapy 6. Diabetes mellitus type 2: Treat per primary team Thank you for your consultation JOY NAM MD Nov 02, 2018 20:46
[2018-11-02] MEDS: NON FORMULARY ITEM (Doxepin Hcl (Silenor) 6 MG) PO SCH (21:00)
[2018-11-02] MEDS: LITHIUM CARBONATE ER 300 MG TABLET.ER PO SCH (21:00)
[2018-11-02] MEDS ORDERED: ATORVASTATIN CALCIUM 10 MG TABLET. PO SCH (21:00)
[2018-11-02] MEDS ORDERED: NON FORMULARY ITEM (Fluticasone/Salmeterol (Advair 250-50 Diskus) 1 PUFF) IH SCH (21:00)
[2018-11-02] MEDS: ATORVASTATIN CALCIUM 20 MG TABLET PO SCH (21:38)
[2018-11-02] MEDS: LURASIDONE 40 MG TABLET. PO SCH (21:38)
[2018-11-02] MEDS: METOPROLOL TART IMMED RELEASE 25 MG TABLET. PO SCH (21:38)
[2018-11-02 23:19] VITALS: BP 144/84
[2018-11-03 03:20] VITALS: BP 157/84
[2018-11-03 07:00] VITALS: BP 154/73
[2018-11-03] MEDS: PANTOPRAZOLE 40 MG TABLET.DR. PO SCH (07:13)
[2018-11-03] MEDS: metFORMIN 500 MG TABLET PO SCH ×2 (08:00→16:31)
[2018-11-03] MEDS: INSULIN LISPRO 300 UNITS/3 ML INSULN.PEN. SQ SCH ×3 (08:00→16:32)
[2018-11-03] MEDS: BUDESONIDE 0.5 MG/2 ML NEBU. NEB SCH ×2 (08:08→20:33)
[2018-11-03] MEDS: ALBUTEROL SULFATE 2.5 MG/3 ML NEBU. NEB SCH ×4 (08:08→20:33)
[2018-11-03 08:13] LABS: BASO % 0 % (0-3); EOS # 0.2 x10^3/uL (0.0-0.7); EOS % 3 % (0-3); HEMATOCRIT 36.9 % (39.0-53.0); LYMPH # 0.8 x10^3/uL (1.0-4.8); LYMPH % 12 % (24-48); MEAN CORPUSCULAR HEMOGLOBIN 28 pg (25-35); MEAN CORPUSCULAR HGB CONC 33 g/dL (31-37); MEAN CORPUSCULAR VOLUME 84 fL (79-100); MONO # 0.6 x10^3/uL (0.0-1.1); MONO % 9 % (0-9); NEUT # 4.8 x10^3uL (1.8-7.7); NEUT % 75 % (31-73); PLATELET COUNT 125 x10^3/uL (140-400); RED BLOOD COUNT 4.37 x10^6/uL (4.30-5.70); RED CELL DISTRIBUTION WIDTH 15.6 % (11.5-14.5); WHITE BLOOD COUNT 6.4 x10^3/uL (4.0-11.0)
[2018-11-03 08:20] LABS: PROTHROMBIN TIME PATIENT 20.7 SEC (11.7-14.0)
[2018-11-03] MEDS: POTASSIUM CHLORIDE 10 MEQ TABLET.ER. PO SCH (08:31)
[2018-11-03] MEDS: GLIMEPIRIDE 2 MG TABLET. PO SCH (08:32)
[2018-11-03] MEDS: CHOLECALCIFEROL (VITAMIN D3) 1,000 UNIT TABLET PO SCH (08:32)
[2018-11-03] MEDS: FUROSEMIDE 40 MG TABLET. PO SCH (08:32)
[2018-11-03] MEDS: amLODIPine BESYLATE 5 MG TABLET PO SCH (08:32)
[2018-11-03] MEDS: buPROPion SR 100 MG TABLET.SA. PO SCH (08:32)
[2018-11-03] MEDS: METOPROLOL TART IMMED RELEASE 25 MG TABLET. PO SCH ×2 (08:33→20:20)
[2018-11-03 08:37] LABS: CREATININE 1.4 mg/dL (0.7-1.3); GFR 50.9; POTASSIUM 4.4 mmol/L (3.5-5.1)
[2018-11-03] MEDS: FLUTICASONE 50MCG/NASAL SPRAY 16GM BOTTLE. NS SCH (09:00)
[2018-11-03] MEDS ORDERED: CHOLECALCIFEROL (VITAMIN D3) 1,000 UNIT TABLET PO SCH (09:00)
[2018-11-03] MEDS ORDERED: PANTOPRAZOLE SODIUM PO SCH (09:00)
--- NOTE | 2018-11-03 10:26 | PDOC ---
BONITA LY THREAD SPINNER 11/03/18 1026: CARDIO Progress Notes Date and Time Date of Service 11/03/2018 Time of Evaluation 0930 Subjective Subjective: No Chest Pain, No shortness of breath, No Palpitations Vitals Vitals Vital Signs Date Time Temp Pulse Resp B/P (MAP) Pulse Ox O2 Delivery O2 Flow Rate FiO2 11/03/18 08:33 64 154/73 11/03/18 08:10 97 Room Air 11/03/18 07:00 97.9 18 97.9 Weight Weight [ ] Input and Output Intake and Output Intake and Output 11/03/18 07:00 Intake Total 1900 ml Balance 1900 ml Intake Oral 900 ml IV Total 1000 ml # Voids 4 Laboratory Labs Laboratory Tests Test 11/02/18 10:58 11/02/18 16:57 11/03/18 06:38 11/03/18 06:58 Glucose (Fingerstick) 138 mg/dL (70-99) 130 mg/dL (70-99) Prothrombin Time 20.7 SEC (11.7-14.0) Prothromb Time International Ratio 1.9 (0.8-1.1) Sodium Level 139 mmol/L (136-145) Potassium Level 4.4 mmol/L (3.5-5.1) Chloride Level 106 mmol/L (98-107) Carbon Dioxide Level 25 mmol/L (21-32) Anion Gap 8 (6-14) Blood Urea Nitrogen 17 mg/dL (8-26) Creatinine 1.4 mg/dL (0.7-1.3) Estimated GFR (Cockcroft-Gault) 50.9 Glucose Level 123 mg/dL (70-99) Calcium Level 9.0 mg/dL (8.5-10.1) White Blood Count 6.4 x10^3/uL (4.0-11.0) Red Blood Count 4.37 x10^6/uL (4.30-5.70) Hemoglobin 12.0 g/dL (13.0-17.5) Hematocrit 36.9 % (39.0-53.0) Mean Corpuscular Volume 84 fL (79-100) Mean Corpuscular Hemoglobin 28 pg (25-35) Mean Corpuscular Hemoglobin Concent 33 g/dL (31-37) Red Cell Distribution Width 15.6 % (11.5-14.5) Platelet Count 125 x10^3/uL (140-400) Neutrophils (%) (Auto) 75 % (31-73) Lymphocytes (%) (Auto) 12 % (24-48) Monocytes (%) (Auto) 9 % (0-9) Eosinophils (%) (Auto) 3 % (0-3) Basophils (%) (Auto) 0 % (0-3) Neutrophils # (Auto) 4.8 x10^3uL (1.8-7.7) Lymphocytes # (Auto) 0.8 x10^3/uL (1.0-4.8) Monocytes # (Auto) 0.6 x10^3/uL (0.0-1.1) Eosinophils # (Auto) 0.2 x10^3/uL (0.0-0.7) Basophils # (Auto) 0.0 x10^3/uL (0.0-0.2) Test 11/03/18 07:57 Glucose (Fingerstick) 130 mg/dL (70-99) Physical Exam HEENT: Neck Supple W Full Motion Chest: Symmetric LUNGS: Clear to Auscultation Heart: RRR (SR), murmurs (3/6 diatolic murmur to apex, 3/6 systolic murmur to STEFFI border with audible click.) Abdomen: Soft N/T, Other (truncal obesity) Extremities: Other (1-2+ bilateral LE pitting edema) Neurology: alert, oriented, follow commands Assessment Assessment 1. Headache, nausea, vomiting and diarrhea: Better. Workup and treat per IM 2. Arrhythmia: brief episodes of appears to be aberrant afib per tele. EKG I did note WAP. 3. 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 Notable fo mechanical AVR but also noted with mod to severe MS which to his account this was probably mentioned to him before but no mention of plan. . 4. HTN 5. DM2/HLP 6. Cardiomyopathy/chronic systolic CHF: EF at 40-45% multifactorial. Compensated Recommendations 1. Will obtain records for further clarification of Dr. Monge cardiac plans for him. 2. Check Mg. Continue coumadin, metoprolol, statin, lasix, and lisinopril. INR 1.9, unclear goal for INR 2-3 vs 2.5-3.5. Dosing per pharmacy. Hgb and PLT stable. 3. Will need outpt event monitor which I will defer to Dr. Hung to ascertain arrhythmia episodes. 4. Supportive care. JOY NAM MD 11/03/18 1703: CARDIO Progress Notes Assessment Assessment Patient seen and examined. Agree with EXTRUDER OPERATOR [employer]ERT[employer]'s assessment and plan. 2-D echo results and telemetry strips noted. Agree with event monitor as an outpatient. Headache improved since admission. No further cardiac workup is indicated at this time. Follow-up with primary rotary bar operator. BONITA LY APRN Nov 03, 2018 10:26 JOY NAM MD Nov 03, 2018 17:03
[2018-11-03 10:45] VITALS: BP 133/74
--- NOTE | 2018-11-03 11:04 | PDOC2 ---
GI CONSULT Reason For Consult: Acute pancreatitis HPI: HPI: 63 y/o male who was admitted through the ER yesterday for evaluation of headache. We were asked to see him for elevated lipase (775). 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 Keith Parks. He says he was started on a pill (think Protonix) and has an EGD scheduled for November. Then last week after eating half a breakfast sandwich at [employer] where he work, nausea was worse and associated w/ vomiting x 1 and diarrhea which persisted until Tuesday. Has had a normal stool since and is now tolerating PO but says his appetite isn't the best. Though documented in outside records, he denies h/o GERD. "I'm taking a pill for that and I don't know why." No dysphagia. Doesn't think much issue w/ nausea until 3 months ago. Now fairly constant. No weight loss. No constipation. No hematemesis, hematochezia, or melena. EGD 08/2015 (Dr. Parks) for epigastric pain: non-bleeding grade 1 varices, normal stomach (random biopsies focally minimally positive for H. pylori), normal duodenum. Recs to continue omeprazole. Colonoscopy (same day) for h/o colon polyps: normal. EGD 02/2016 (Dr. Parks) for hematemesis: non-bleeding grade II varices s/p band ligation, normal stomach, normal duodenum. Flex sig 02/2017 (Dr. Parks) for chronic diarrhea: normal (and random biopsies negative for pathology). S/p cholecystectomy for stones. H/o Hep C - says treated "with a shot and pills" long ago. Had false + HCV Ag @ [facility] (neg PCR). Denies pancreas history. Significant cardiac history on Warfarin. Denies NSAIDs. 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 PMH: PMH: congenital valve heart disease, HTN, ?CKD, BEST, HLD, DM, GERD, Hep C (treated), esophageal varices, bipolar, depression, anxiety, OA cholecystectomy, hernia repair, multiple heart surgeries/valve replacement FH: Family History: Cancer (brother - liver), CAD, DM, Hypertension Social History: Smoke: Quit ALCOHOL: other (drank heavily until 1989, sober since) Drugs: Other (past use of cocaine, heroin, marijuana) ROS: GEN: Denies fevers, chills, sweats HEENT: Denies blurred vision, sore throat CV: Denies chest pain RESP: Denies shortness of air, cough GI: Per HPI : Denies hematuria, dysuria ENDO: Denies weight changes NEURO: Denies confusion, dizziness MSK: Denies weakness, joint pain/swelling SKIN: Denies jaundice, pruritus Vitals: Vitals: Vital Signs Date Time Temp Pulse Resp B/P (MAP) Pulse Ox O2 Delivery O2 Flow Rate FiO2 11/03/18 10:45 98.4 58 18 133/74 (93) 92 Room Air 98.4 Labs: Labs: Laboratory Tests Test 11/02/18 16:57 11/03/18 06:38 11/03/18 06:58 11/03/18 07:57 Glucose (Fingerstick) 130 mg/dL (70-99) 130 mg/dL (70-99) Prothrombin Time 20.7 SEC (11.7-14.0) Prothromb Time International Ratio 1.9 (0.8-1.1) Sodium Level 139 mmol/L (136-145) Potassium Level 4.4 mmol/L (3.5-5.1) Chloride Level 106 mmol/L (98-107) Carbon Dioxide Level 25 mmol/L (21-32) Anion Gap 8 (6-14) Blood Urea Nitrogen 17 mg/dL (8-26) Creatinine 1.4 mg/dL (0.7-1.3) Estimated GFR (Cockcroft-Gault) 50.9 Glucose Level 123 mg/dL (70-99) Calcium Level 9.0 mg/dL (8.5-10.1) Magnesium Level 1.4 mg/dL (1.8-2.4) White Blood Count 6.4 x10^3/uL (4.0-11.0) Red Blood Count 4.37 x10^6/uL (4.30-5.70) Hemoglobin 12.0 g/dL (13.0-17.5) Hematocrit 36.9 % (39.0-53.0) Mean Corpuscular Volume 84 fL (79-100) Mean Corpuscular Hemoglobin 28 pg (25-35) Mean Corpuscular Hemoglobin Concent 33 g/dL (31-37) Red Cell Distribution Width 15.6 % (11.5-14.5) Platelet Count 125 x10^3/uL (140-400) Neutrophils (%) (Auto) 75 % (31-73) Lymphocytes (%) (Auto) 12 % (24-48) Monocytes (%) (Auto) 9 % (0-9) Eosinophils (%) (Auto) 3 % (0-3) Basophils (%) (Auto) 0 % (0-3) Neutrophils # (Auto) 4.8 x10^3uL (1.8-7.7) Lymphocytes # (Auto) 0.8 x10^3/uL (1.0-4.8) Monocytes # (Auto) 0.6 x10^3/uL (0.0-1.1) Eosinophils # (Auto) 0.2 x10^3/uL (0.0-0.7) Basophils # (Auto) 0.0 x10^3/uL (0.0-0.2) Test 11/03/18 10:38 Glucose (Fingerstick) 148 mg/dL (70-99) Allergies: Coded Allergies: zolpidem (Verified Allergy, Intermediate, 11/02/18) Medications: Current Medications Medications (Trade) Dose Ordered Sig/Esdras Route PRN Reason Start Time Stop Time Status Last Admin Dose Admin Amlodipine Besylate (Norvasc) 5 mg DAILY PO 11/02/18 16:00 11/03/18 08:32 Glimepiride (Amaryl) 2 mg DAILY PO 11/03/18 09:00 11/03/18 08:32 Lurasidone HCl (Latuda) 40 mg QHS PO 11/02/18 21:00 11/02/18 21:38 Metoprolol Tartrate (Lopressor) 25 mg BID PO 11/02/18 21:00 11/03/18 08:33 Potassium Chloride (Klor-Con) 20 meq QODAY PO 11/03/18 09:00 11/03/18 08:31 Ondansetron HCl (Zofran) 4 mg PRN Q6HRS PRN IV NAUSEA/VOMITING 11/02/18 15:15 11/02/18 18:00 Pantoprazole Sodium (Protonix) 40 mg DAILYAC PO 11/02/18 16:30 127/18 07:13 Warfarin Sodium (Coumadin Per Physician) 1 each PRN DAILY PRN MC SEE COMMENTS 11/02/18 16:15 11/02/18 17:35 DC 11/02/18 16:26 Albuterol Sulfate (Ventolin Neb Soln) 2.5 mg Q6HRS NEB 11/02/18 18:00 11/03/18 08:08 Budesonide (Pulmicort) 0.5 mg RTBID NEB 11/02/18 20:00 11/03/18 08:08 Atorvastatin Calcium (Lipitor) 20 mg HS PO 11/02/18 21:00 11/02/18 21:38 Bupropion HCl (Wellbutrin Sr) 100 mg DAILYWBKFT PO 11/03/18 08:00 11/03/18 08:32 Vitamin D (Vitamin D3) 2,000 unit DAILY PO 11/03/18 09:00 11/03/18 08:32 Furosemide (Lasix) 40 mg DAILY PO 11/03/18 09:00 11/03/18 08:32 Metformin HCl (Glucophage) 1,000 mg BIDWMEALS PO 11/02/18 18:00 11/02/18 18:00 Warfarin Sodium (Coumadin) 12 mg 1X WARF ONCE PO 11/02/18 16:00 11/02/18 17:37 DC 11/02/18 18:00 Imaging: Imaging: Head CT IMPRESSION: No acute intracranial abnormality is detected. CXR IMPRESSION: 1. Cardiomegaly and aortic atherosclerosis. 2. No acute cardiopulmonary abnormality is detected. Echo <Conclusion> Left ventricle systolic function is moderately impaired. The Ejection Fraction is 40-45%. There is mild global hypokinesis of the left ventricle. There is a mechanical aortic valve prosthesis. The prosthetic aortic valve is not well visualized. Calculated aortic valve area is 1.3 cm2 with maximum pressure gradient of 44 mmHg and mean pressure gradient of 25 mmHg. There is moderate to severe mitral valve stenosis. Calculated mitral valve area is 1.3 cm2 with maximum pressure gradient of 29 mmHg and mean pressure gradient of 10 mmHg. Doppler and Color Flow revealed trace tricuspid regurgitation. There is moderate pulmonary hypertension. The PA pressure was estimated at 58 mmHg. PE: GEN: NAD HEENT: Atraumatic, PERRL LUNGS: CTAB HEART: RRR +click ABD: NABS, round, non-tender EXTREMITY: No edema SKIN: No rashes, no jaundice NEURO/PSYCH: A & O 3 A/P: A/P: Headache - resolved Mildly elevated lipase Chronic nausea -?h/o GERD, seems on and off PPI use -worse last week w/ vomiting x 1 and diarrhea (?infectious, resolved) H/o Hep C (treated) w/ esophageal varices (banded 2015) CRC screen - UTD S/p cholecystectomy H/o alcohol/drug abuse Anemia, thrombocytopenia Congenital valvular heart disease, DM -- Chest CT A/P and iron studies. Agree w/ PPI. Plans for EGD w/ Dr. Parks next month. TIAGO SANCHEZ Nov 03, 2018 11:04
[2018-11-03] MEDS: LISINOPRIL 20 MG TABLET PO SCH (11:16)
--- NOTE | 2018-11-03 12:45 | PDOC ---
PROGRESS NOTES Chief Complaint Chief Complaint Acute pancreatitis, N/V/D x 5 dys + headache History of Present Illness History of Present Illness Pt was seen at bedside today, lying down. Current complaints include nausea, denies abdominal pain but admits discomfort. Lipase 775 no imaging completed on pancreas, consulted GI today. cardiology also consulted for abnml ekg, PAT and the [facility] supportive care and monitoring. Work up in progress with AP, ordered AM lipase. Other lab abnormalities include bmp 4409, TRP 0.042, INR 1.9 on warfarin, Cr 1.4. Chest CT negative for acute changes, head CT negative for acute changes. Pmh of congenital valve disease, pulm stenosis, pvr + avr surgery x 3, t2dm, warfarin. He denies etoh abuse Followed by Cardio, GI Vitals Vitals Vital Signs Date Time Temp Pulse Resp B/P (MAP) Pulse Ox O2 Delivery O2 Flow Rate FiO2 11/03/18 11:16 58 133/74 11/03/18 10:45 98.4 18 92 Room Air 98.4 Physical Exam General: Alert, Oriented X3, Cooperative, mild distress Heart: Regular rate, Other (prosthetic aortic valve click ) Lungs: Clear Abdomen: Soft, No tenderness, Other (distended) Extremities: No clubbing, No cyanosis, No edema Skin: No rashes, No significant lesion Labs LABS Laboratory Tests Test 11/02/18 16:57 11/03/18 06:38 11/03/18 06:58 11/03/18 07:57 Glucose (Fingerstick) 130 mg/dL (70-99) 130 mg/dL (70-99) Prothrombin Time 20.7 SEC (11.7-14.0) Prothromb Time International Ratio 1.9 (0.8-1.1) Sodium Level 139 mmol/L (136-145) Potassium Level 4.4 mmol/L (3.5-5.1) Chloride Level 106 mmol/L (98-107) Carbon Dioxide Level 25 mmol/L (21-32) Anion Gap 8 (6-14) Blood Urea Nitrogen 17 mg/dL (8-26) Creatinine 1.4 mg/dL (0.7-1.3) Estimated GFR (Cockcroft-Gault) 50.9 Glucose Level 123 mg/dL (70-99) Calcium Level 9.0 mg/dL (8.5-10.1) Magnesium Level 1.4 mg/dL (1.8-2.4) Iron Level 62 ug/dL (65-175) Total Iron Binding Capacity 311 ug/dL (250-450) Iron Saturation 20 % (15-34) White Blood Count 6.4 x10^3/uL (4.0-11.0) Red Blood Count 4.37 x10^6/uL (4.30-5.70) Hemoglobin 12.0 g/dL (13.0-17.5) Hematocrit 36.9 % (39.0-53.0) Mean Corpuscular Volume 84 fL (79-100) Mean Corpuscular Hemoglobin 28 pg (25-35) Mean Corpuscular Hemoglobin Concent 33 g/dL (31-37) Red Cell Distribution Width 15.6 % (11.5-14.5) Platelet Count 125 x10^3/uL (140-400) Neutrophils (%) (Auto) 75 % (31-73) Lymphocytes (%) (Auto) 12 % (24-48) Monocytes (%) (Auto) 9 % (0-9) Eosinophils (%) (Auto) 3 % (0-3) Basophils (%) (Auto) 0 % (0-3) Neutrophils # (Auto) 4.8 x10^3uL (1.8-7.7) Lymphocytes # (Auto) 0.8 x10^3/uL (1.0-4.8) Monocytes # (Auto) 0.6 x10^3/uL (0.0-1.1) Eosinophils # (Auto) 0.2 x10^3/uL (0.0-0.7) Basophils # (Auto) 0.0 x10^3/uL (0.0-0.2) Test 11/03/18 10:38 Glucose (Fingerstick) 148 mg/dL (70-99) Review of Systems Review of Systems General : Denies fever, fatigue, chills Cardio: Denies chest pain, palpitations Pulm: denies soa, cough Assessment and Plan Assessmemt and Plan Assessment Acute pancreatitis- lipase 775 Anticoagulated on warfarin INR 1.9 Headache- resolving N/V/D x 5 days Abnormal EKG: Patient was in sinus rhythm with premature atrial complexes. He is not in atrial flutter ablation/flutter that was noted by computer read. Monitor telemetry for any significant arrhythmias. 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 Suspect congenital pulmonary stenosis based on his account with more recent mechanical aortic valve replacement. INR 2.5. 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 Hypertension Hyperlipidemia Diabetes mellitus type 2 Plan Labs in AM CBC, BMP, Lipase IVF Acute pancreatitis work up in progress per GI Stain, hypertensive medication- titrate as needed Warfarin Glycemic control VTE prophylaxis Cardiac monitoring Appreciate cardiology input Appreciate GI input PT/OT home meds Comment Review of Relevant I have reviewed the following items saurav (where applicable) has been applied. Labs Laboratory Tests Test 11/02/18 06:30 11/02/18 07:00 11/02/18 07:54 11/02/18 10:58 White Blood Count 4.9 x10^3/uL (4.0-11.0) Red Blood Count 4.47 x10^6/uL (4.30-5.70) Hemoglobin 12.1 g/dL (13.0-17.5) Hematocrit 37.4 % (39.0-53.0) Mean Corpuscular Volume 84 fL (79-100) Mean Corpuscular Hemoglobin 27 pg (25-35) Mean Corpuscular Hemoglobin Concent 32 g/dL (31-37) Red Cell Distribution Width 15.4 % (11.5-14.5) Platelet Count 111 x10^3/uL (140-400) Neutrophils (%) (Auto) 82 % (31-73) Lymphocytes (%) (Auto) 8 % (24-48) Monocytes (%) (Auto) 8 % (0-9) Eosinophils (%) (Auto) 2 % (0-3) Basophils (%) (Auto) 0 % (0-3) Neutrophils # (Auto) 4.0 x10^3uL (1.8-7.7) Lymphocytes # (Auto) 0.4 x10^3/uL (1.0-4.8) Monocytes # (Auto) 0.4 x10^3/uL (0.0-1.1) Eosinophils # (Auto) 0.1 x10^3/uL (0.0-0.7) Basophils # (Auto) 0.0 x10^3/uL (0.0-0.2) Erythrocyte Sedimentation Rate 15 (0-15) Prothrombin Time 26.2 SEC (11.7-14.0) Prothromb Time International Ratio 2.5 (0.8-1.1) Sodium Level 140 mmol/L (136-145) Potassium Level 3.9 mmol/L (3.5-5.1) Chloride Level 107 mmol/L (98-107) Carbon Dioxide Level 23 mmol/L (21-32) Anion Gap 10 (6-14) Blood Urea Nitrogen 22 mg/dL (8-26) Creatinine 1.5 mg/dL (0.7-1.3) Estimated GFR (Cockcroft-Gault) 47.0 BUN/Creatinine Ratio 15 (6-20) Glucose Level 155 mg/dL (70-99) Calcium Level 9.4 mg/dL (8.5-10.1) Total Bilirubin 0.6 mg/dL (0.2-1.0) Aspartate Amino Transf (AST/SGOT) 24 U/L (15-37) Alanine Aminotransferase (ALT/SGPT) 28 U/L (16-63) Alkaline Phosphatase 118 U/L (46-116) Troponin I Quantitative 0.042 ng/mL (0.000-0.055) C-Reactive Protein, Quantitative 3.1 mg/L (0-3.3) IP-Ads-M-Type Natriuretic Peptide 4409 pg/mL (0-124) Total Protein 7.4 g/dL (6.4-8.2) Albumin 3.9 g/dL (3.4-5.0) Albumin/Globulin Ratio 1.1 (1.0-1.7) Lipase 775 U/L (73-393) [place] Level 1.3 mmol/L (0.6-1.2) [place] Last Dose Date Unknown [place] Last Dose Time Unknown Urine Collection Type Unknown Urine Color Yellow Urine Clarity Clear Urine pH 6.0 Urine Specific [place] 1.025 Urine Protein 30 mg/dL (NEG-TRACE) Urine Glucose (UA) Negative mg/dL (NEG) Urine Ketones (Stick) Negative mg/dL (NEG) Urine Blood Small (NEG) Urine Nitrite Negative (NEG) Urine Bilirubin Negative (NEG) Urine Urobilinogen Dipstick 0.2 mg/dL (0.2 mg/dL) Urine Leukocyte Esterase Trace (NEG) Urine RBC 3-5 /HPF (0-2) Urine WBC 1-4 /HPF (0-4) Urine Renal Epithelial Cells Occ /LPF Urine Bacteria Few /HPF (0-FEW) Urine Hyaline Casts Few /HPF Urine Mucus Mod /LPF Influenza Type A Antigen Negative (NEGATIVE) Influenza Type B Antigen Negative (NEGATIVE) Glucose (Fingerstick) 138 mg/dL (70-99) Test 11/02/18 16:57 11/03/18 06:38 11/03/18 06:58 11/03/18 07:57 Glucose (Fingerstick) 130 mg/dL (70-99) 130 mg/dL (70-99) Prothrombin Time 20.7 SEC (11.7-14.0) Prothromb Time International Ratio 1.9 (0.8-1.1) Sodium Level 139 mmol/L (136-145) Potassium Level 4.4 mmol/L (3.5-5.1) Chloride Level 106 mmol/L (98-107) Carbon Dioxide Level 25 mmol/L (21-32) Anion Gap 8 (6-14) Blood Urea Nitrogen 17 mg/dL (8-26) Creatinine 1.4 mg/dL (0.7-1.3) Estimated GFR (Cockcroft-Gault) 50.9 Glucose Level 123 mg/dL (70-99) Calcium Level 9.0 mg/dL (8.5-10.1) Magnesium Level 1.4 mg/dL (1.8-2.4) Iron Level 62 ug/dL (65-175) Total Iron Binding Capacity 311 ug/dL (250-450) Iron Saturation 20 % (15-34) White Blood Count 6.4 x10^3/uL (4.0-11.0) Red Blood Count 4.37 x10^6/uL (4.30-5.70) Hemoglobin 12.0 g/dL (13.0-17.5) Hematocrit 36.9 % (39.0-53.0) Mean Corpuscular Volume 84 fL (79-100) Mean Corpuscular Hemoglobin 28 pg (25-35) Mean Corpuscular Hemoglobin Concent 33 g/dL (31-37) Red Cell Distribution Width 15.6 % (11.5-14.5) Platelet Count 125 x10^3/uL (140-400) Neutrophils (%) (Auto) 75 % (31-73) Lymphocytes (%) (Auto) 12 % (24-48) Monocytes (%) (Auto) 9 % (0-9) Eosinophils (%) (Auto) 3 % (0-3) Basophils (%) (Auto) 0 % (0-3) Neutrophils # (Auto) 4.8 x10^3uL (1.8-7.7) Lymphocytes # (Auto) 0.8 x10^3/uL (1.0-4.8) Monocytes # (Auto) 0.6 x10^3/uL (0.0-1.1) Eosinophils # (Auto) 0.2 x10^3/uL (0.0-0.7) Basophils # (Auto) 0.0 x10^3/uL (0.0-0.2) Test 11/03/18 10:38 Glucose (Fingerstick) 148 mg/dL (70-99) Laboratory Tests Test 11/02/18 16:57 11/03/18 06:38 11/03/18 06:58 11/03/18 07:57 Glucose (Fingerstick) 130 mg/dL (70-99) 130 mg/dL (70-99) Prothrombin Time 20.7 SEC (11.7-14.0) Prothromb Time International Ratio 1.9 (0.8-1.1) Sodium Level 139 mmol/L (136-145) Potassium Level 4.4 mmol/L (3.5-5.1) Chloride Level 106 mmol/L (98-107) Carbon Dioxide Level 25 mmol/L (21-32) Anion Gap 8 (6-14) Blood Urea Nitrogen 17 mg/dL (8-26) Creatinine 1.4 mg/dL (0.7-1.3) Estimated GFR (Cockcroft-Gault) 50.9 Glucose Level 123 mg/dL (70-99) Calcium Level 9.0 mg/dL (8.5-10.1) Magnesium Level 1.4 mg/dL (1.8-2.4) Iron Level 62 ug/dL (65-175) Total Iron Binding Capacity 311 ug/dL (250-450) Iron Saturation 20 % (15-34) White Blood Count 6.4 x10^3/uL (4.0-11.0) Red Blood Count 4.37 x10^6/uL (4.30-5.70) Hemoglobin 12.0 g/dL (13.0-17.5) Hematocrit 36.9 % (39.0-53.0) Mean Corpuscular Volume 84 fL (79-100) Mean Corpuscular Hemoglobin 28 pg (25-35) Mean Corpuscular Hemoglobin Concent 33 g/dL (31-37) Red Cell Distribution Width 15.6 % (11.5-14.5) Platelet Count 125 x10^3/uL (140-400) Neutrophils (%) (Auto) 75 % (31-73) Lymphocytes (%) (Auto) 12 % (24-48) Monocytes (%) (Auto) 9 % (0-9) Eosinophils (%) (Auto) 3 % (0-3) Basophils (%) (Auto) 0 % (0-3) Neutrophils # (Auto) 4.8 x10^3uL (1.8-7.7) Lymphocytes # (Auto) 0.8 x10^3/uL (1.0-4.8) Monocytes # (Auto) 0.6 x10^3/uL (0.0-1.1) Eosinophils # (Auto) 0.2 x10^3/uL (0.0-0.7) Basophils # (Auto) 0.0 x10^3/uL (0.0-0.2) Test 11/03/18 10:38 Glucose (Fingerstick) 148 mg/dL (70-99) Medications Current Medications Morphine Sulfate (Morphine Sulfate) 4 mg PRN Q15MIN PRN IV/SQ PAIN GREATER THAN 3/10; Start 11/02/18 at 06:15; Stop 11/02/18 at 08:57; Status DC Sodium Chloride 1,000 ml @ 1,000 mls/hr Q1H IV Last administered on 11/02/18at 07:47; Start 11/02/18 at 06:10; Stop 11/02/18 at 07:09; Status DC Acetaminophen (Tylenol) 1,000 mg 1X ONCE PO Last administered on 11/02/18at 07: 49; Start 11/02/18 at 07:45; Stop 11/02/18 at 07:47; Status DC Ondansetron HCl (Zofran) 4 mg PRN Q8HRS PRN IV NAUSEA/VOMITING Last administered on 11/02/18at 14:21; Start 11/02/18 at 09:00; Stop 11/02/18 at 16:09 ; Status DC Morphine Sulfate (Morphine Sulfate) 4 mg PRN Q2HR PRN IV PAIN Last administered on 11/02/18at 14:11; Start 11/02/18 at 09:00; Stop 11/02/18 at 16:09 ; Status DC Amlodipine Besylate (Norvasc) 5 mg DAILY PO Last administered on 11/03/18at 08: 32; Start 11/02/18 at 16:00 Atorvastatin Calcium (Lipitor) 10 mg QHS PO ; Start 11/02/18 at 21:00; Status Cancel Vitamin D (Vitamin D3) 1,000 unit DAILY PO ; Start 11/03/18 at 09:00; Stop 11/03 at 09:00; Status DC Fluticasone Propionate (Flonase) 2 spray DAILY NS ; Start 11/03/18 at 09:00 Glimepiride (Amaryl) 2 mg DAILY PO Last administered on 11/03/18at 08:32; Start 11/03/18 at 09:00 Lurasidone HCl (Latuda) 40 mg QHS PO Last administered on 11/02/18at 21:38; Start 11/02/18 at 21:00 Metoprolol Tartrate (Lopressor) 25 mg BID PO Last administered on 11/03/18at 08: 33; Start 11/02/18 at 21:00 Oxycodone/ Acetaminophen (Percocet 10/325) 1 tab PRN BID PRN PO SEVERE PAIN; Start 11/02/18 at 15:15 Potassium Chloride (Klor-Con) 20 meq QODAY PO Last administered on 11/03/18at 08 :31; Start 11/03/18 at 09:00 Non-Formulary Medication (Fluticasone/ Salmeterol (Advair 250-50 Diskus)) 1 puff BID IH ; Start 11/02/18 at 21:00; Status UNV Warfarin Sodium (Coumadin) 10 mg DAILY16 PO ; Start 11/02/18 at 16:00; Stop 11/02/18 at 17:36; Status DC Acetaminophen (Tylenol) 650 mg PRN Q6HRS PRN PO FEVER; Start 11/02/18 at 15:15 Ondansetron HCl (Zofran) 4 mg PRN Q6HRS PRN IV NAUSEA/VOMITING Last administered on 11/02/18at 18:00; Start 11/02/18 at 15:15 Morphine Sulfate (Morphine Sulfate) 2 mg PRN Q2HR PRN IV MODERATE TO SEVERE PAIN; Start 11/02/18 at 15:15 Tramadol HCl (Ultram) 50 mg PRN Q6HRS PRN PO MILD TO MODERATE PAIN; Start 11/02 at 15:15 Docusate Sodium (Colace) 100 mg PRN DAILY PRN PO CONSTIPATION; Start 11/02/18 at 15:15 Labetalol HCl (Normodyne Iv Push) 20 mg PRN Q2HR PRN IVP HYPERTENSION, SEE COMMENTS; Start 11/02/18 at 15:15 Pantoprazole Sodium (Protonix) 40 mg DAILYAC PO Last administered on 11/03/18at 07:13; Start 11/02/18 at 16:30 Insulin Human Lispro (HumaLOG) 0-9 UNITS TIDWMEALS SQ ; Start 11/02/18 at 17:00 Dextrose (Dextrose 50%-Water Syringe) 12.5 gm PRN Q15MIN PRN IV SEE COMMENTS; Start 11/02/18 at 15:15 Warfarin Sodium (Coumadin Per Physician) 1 each PRN DAILY PRN MC SEE COMMENTS Last administered on 11/02/18at 16:26; Start 11/02/18 at 16:15; Stop 11/02/18 at 17:35; Status DC Albuterol Sulfate (Ventolin Neb Soln) 2.5 mg Q6HRS NEB Last administered on 11/03/18at 08:08; Start 11/02/18 at 18:00 Budesonide (Pulmicort) 0.5 mg RTBID NEB Last administered on 11/03/18at 08:08; Start 11/02/18 at 20:00 Alprazolam (Xanax) 0.25 mg PRN BID PRN PO ANXIETY; Start 11/02/18 at 17:30 Atorvastatin Calcium (Lipitor) 20 mg HS PO Last administered on 11/02/18at 21:38 ; Start 11/02/18 at 21:00 Bupropion HCl (Wellbutrin Sr) 100 mg DAILYWBKFT PO Last administered on at 08:32; Start 11/03/18 at 08:00 Vitamin D (Vitamin D3) 2,000 unit DAILY PO Last administered on 11/03/18at 08:32 ; Start 11/03/18 at 09:00 Furosemide (Lasix) 40 mg DAILY PO Last administered on 11/03/18at 08:32; Start 11/03/18 at 09:00 Temazepam (Restoril) 15 mg PRN QHS PRN PO INSOMNIA; Start 11/02/18 at 17:30 Warfarin Sodium (Coumadin Per Pharmacy) 1 each PRN DAILY PRN MC SEE COMMENTS; Start 11/02/18 at 17:45 Non-Formulary Medication (Doxepin Hcl (Silenor)) 6 mg HS PO ; Start 11/02/18 at 21:00; Status UNV [place] Carbonate (Lithobid) 900 mg QHS PO ; Start 11/02/18 at 21:00 Metformin HCl (Glucophage) 1,000 mg BIDWMEALS PO Last administered on at 18:00; Start 11/02/18 at 18:00 Non-Formulary Medication (Pantoprazole Sodium (Protonix)) 2 tab DAILY PO ; Start 11/03/18 at 09:00; Status UNV Lisinopril (Prinivil) 20 mg DAILY PO Last administered on 11/03/18at 11:16; Start 11/03/18 at 09:00 Warfarin Sodium (Coumadin) 12 mg 1X WARF ONCE PO Last administered on at 18:00; Start 11/02/18 at 16:00; Stop 11/02/18 at 17:37; Status DC Active Scripts Active Metoprolol Tartrate 25 Mg Tablet 25 Mg PO BID Reported Vitamin D3 (Cholecalciferol (Vitamin D3)) 1,000 Unit Tablet 2 Tab PO DAILY Atorvastatin Calcium 20 Mg Tablet 1 Tab PO HS Bupropion Hcl Sr (Bupropion Hcl) 100 Mg Tablet.er 1 Tab PO DAILYWBKFT Silenor (Doxepin Hcl) 6 Mg Tablet 6 Mg PO HS Temazepam 15 Mg Capsule 2 Cap PO QHS PRN Protonix (Pantoprazole Sodium) 20 Mg Tablet.dr 2 Tab PO DAILY [place] Carbonate 450 Mg Tablet.er 2 Tab PO QHS Warfarin Sodium 1 Mg Tablet 2 Mg PO DAILY Alprazolam 0.25 Mg Tablet 1 Tab PO PRN BID PRN Furosemide 40 Mg Tablet 1 Tab PO DAILY Klor-Con 10 (Potassium Chloride) 10 Meq Tablet.er 20 Meq PO QODAY Oxycodone-Acetaminophen 10-325 (Oxycodone Hcl/Acetaminophen) 1 Each Tablet 1 Tab PO BID PRN Warfarin Sodium 10 Mg Tablet 10 Mg PO DAILY Metformin Hcl 1,000 Mg Tablet 1 Tab PO BID Quinapril Hcl 20 Mg Tablet 20 Mg PO DAILY Vitals/I & O Vital Sign - Last 24 Hours 11/02/18 11/02/18 11/02/18 11/02/18 14:11 14:41 15:00 17:00 Temp 98.0 97.7 98.0 97.7 Pulse 69 64 Resp 20 18 B/P (MAP) 138/78 (98) 145/83 (103) Pulse Ox 95 95 O2 Delivery Room Air Room Air Room Air Room Air 11/02/18 11/02/18 11/02/18 11/02/18 18:00 19:15 20:06 20:32 Temp 97.5 97.5 Pulse 89 Resp 20 B/P (MAP) 145/88 (107) Pulse Ox 97 99 O2 Delivery Room Air Room Air Room Air Room Air 11/02/18 11/02/18 11/02/18 11/03/18 20:33 21:38 23:19 03:20 Temp 98.0 97.8 98.0 97.8 Pulse 89 60 52 Resp 18 18 B/P (MAP) 145/88 144/84 (104) 157/84 (108) Pulse Ox 99 96 97 O2 Delivery Room Air Room Air Room Air 11/03/18 11/03/18 11/03/18 11/03/18 07:00 07:28 07:30 08:10 Temp 97.9 97.9 Pulse 54 Resp 18 B/P (MAP) 154/73 (100) Pulse Ox 95 97 O2 Delivery Room Air Room Air Room Air Room Air 11/03/18 11/03/18 11/03/18 11/03/18 08:32 08:33 10:45 11:16 Temp 98.4 98.4 Pulse 54 64 58 58 Resp 18 B/P (MAP) 154/73 154/73 133/74 (93) 133/74 Pulse Ox 92 O2 Delivery Room Air Intake and Output 11/02/18 11/02/18 11/03/18 15:00 23:00 07:00 Intake Total 1300 ml 600 ml Balance 1300 ml 600 ml [email or web address] CISNEROS III DO Nov 03, 2018 12:45
[2018-11-03] MEDS: ONDANSETRON PF 4 MG/2 ML VIAL. IV PRN (14:35)
[2018-11-03 14:44] VITALS: BP 136/75
[2018-11-03] MEDS ORDERED: MAGNESIUM SULFATE 4GM 100 ML IV ONE (15:30)
--- NOTE | 2018-11-03 15:35 | RAD ---
CT of the abdomen and pelvis without contrast, 11/03/2018: HISTORY: Nausea, elevated lipase Noncontrast scans were obtained as requested The gallbladder is surgically absent. The unopacified liver shows no evidence of a mass or bile duct dilatation. The pancreas is unremarkable. The spleen is of normal size. There is mild bilateral renal cortical scarring. There is minimal streaky perinephric scarring or edema bilaterally. The kidneys show no evidence of obstruction. Moderate aortoiliac calcific plaquing is present without evidence of aneurysm. No abdominal or pelvic adenopathy is seen. The bowel loops are not dilated. The appendix is visualized and shows no abnormality. No free fluid or free air is evident in the abdomen or pelvis. IMPRESSION: No acute abdominal or pelvic abnormality is detected. PQRS Compliance Statement: One or more of the following individualized dose reduction techniques were utilized for this examination: 1. Automated exposure control 2. Adjustment of the mA and/or kV according to patient size 3. Use of iterative reconstruction technique Electronically signed by: Nirmal Lucio MD (11/03/2018 3:32 PM) [facility]
[2018-11-03] MEDS: MAGNESIUM SULFATE 2GM 50 ML IV SCH ×2 (15:50→17:28)
[2018-11-03] MEDS ORDERED: WARFARIN 4 MG TABLET. PO ONE (16:00)
[2018-11-03 19:20] VITALS: BP 140/74
[2018-11-03] MEDS: NON FORMULARY ITEM (Doxepin Hcl (Silenor) 6 MG) PO SCH (20:21)
[2018-11-03] MEDS: ATORVASTATIN CALCIUM 20 MG TABLET PO SCH (20:23)
[2018-11-03] MEDS: LURASIDONE 40 MG TABLET. PO SCH (20:24)
[2018-11-03] MEDS: LITHIUM CARBONATE ER 300 MG TABLET.ER PO SCH (20:24)
[2018-11-03 23:15] VITALS: BP 140/79
[2018-11-04] VITALS (8 sets, daily range): BP systolic 100–164; BP diastolic 65–83
[2018-11-04 04:26] LABS: BASO % 1 % (0-3); EOS # 0.2 x10^3/uL (0.0-0.7); EOS % 2 % (0-3); HEMATOCRIT 36.1 % (39.0-53.0); HEMOGLOBIN 12.1 g/dL (13.0-17.5); LYMPH # 0.8 x10^3/uL (1.0-4.8); LYMPH % 11 % (24-48); MEAN CORPUSCULAR HEMOGLOBIN 28 pg (25-35); MEAN CORPUSCULAR HGB CONC 33 g/dL (31-37); MEAN CORPUSCULAR VOLUME 84 fL (79-100); MONO # 0.7 x10^3/uL (0.0-1.1); MONO % 10 % (0-9); NEUT # 5.7 x10^3uL (1.8-7.7); NEUT % 77 % (31-73); PLATELET COUNT 134 x10^3/uL (140-400); RED BLOOD COUNT 4.32 x10^6/uL (4.30-5.70); RED CELL DISTRIBUTION WIDTH 15.3 % (11.5-14.5); WHITE BLOOD COUNT 7.4 x10^3/uL (4.0-11.0)
[2018-11-04 04:50] LABS: ALBUMIN 3.7 g/dL (3.4-5.0); ALBUMIN/GLOBULIN RATIO 1.2 (1.0-1.7); CALCIUM 8.9 mg/dL (8.5-10.1); CREATININE 1.5 mg/dL (0.7-1.3); TOTAL BILIRUBIN 0.5 mg/dL (0.2-1.0); TOTAL PROTEIN 6.9 g/dL (6.4-8.2)
[2018-11-04] MEDS: INSULIN LISPRO 300 UNITS/3 ML INSULN.PEN. SQ SCH ×3 (08:00→17:00)
[2018-11-04] MEDS: buPROPion SR 100 MG TABLET.SA. PO SCH (08:09)
[2018-11-04] MEDS: ALBUTEROL SULFATE 2.5 MG/3 ML NEBU. NEB SCH ×4 (08:09→20:00)
[2018-11-04] MEDS: BUDESONIDE 0.5 MG/2 ML NEBU. NEB SCH ×2 (08:09→20:00)
[2018-11-04] MEDS: GLIMEPIRIDE 2 MG TABLET. PO SCH (08:10)
[2018-11-04] MEDS: CHOLECALCIFEROL (VITAMIN D3) 1,000 UNIT TABLET PO SCH (08:10)
[2018-11-04] MEDS: FUROSEMIDE 40 MG TABLET. PO SCH (08:10)
[2018-11-04] MEDS: LISINOPRIL 20 MG TABLET PO SCH (08:11)
[2018-11-04] MEDS: PANTOPRAZOLE 40 MG TABLET.DR. PO SCH (08:12)
[2018-11-04] MEDS: METOPROLOL TART IMMED RELEASE 25 MG TABLET. PO SCH ×2 (08:12→21:54)
[2018-11-04] MEDS: FLUTICASONE 50MCG/NASAL SPRAY 16GM BOTTLE. NS SCH (08:13)
[2018-11-04] MEDS: amLODIPine BESYLATE 5 MG TABLET PO SCH (08:13)
[2018-11-04 11:13] LABS: PROTHROMBIN TIME PATIENT 24.2 SEC (11.7-14.0)
[2018-11-04] MEDS ORDERED: amLODIPine BESYLATE 5 MG TABLET PO ONE (13:15)
[2018-11-04] MEDS ORDERED: WARFARIN 4 MG TABLET. PO ONE (16:00)
--- NOTE | 2018-11-04 17:33 | PDOC ---
PROGRESS NOTES Chief Complaint Chief Complaint Acute pancreatitis, N/V/D x 5 dys + headache History of Present Illness History of Present Illness Pt was seen at bedside today, lying down. INR 2.2 today BP in the 160's--> repeat in the 120's Home loppresor held today for HR in 50's Vitals Vitals Vital Signs Date Time Temp Pulse Resp B/P (MAP) Pulse Ox O2 Delivery O2 Flow Rate FiO2 11/04/18 16:18 97 Room Air 11/04/18 15:00 97.3 63 20 142/83 (102) 97.3 Physical Exam General: Alert, Oriented X3, Cooperative, mild distress Heart: Regular rate, Other (prosthetic aortic valve click ) Lungs: Clear Abdomen: Soft, No tenderness, Other (distended) Extremities: No clubbing, No cyanosis, No edema Skin: No rashes, No significant lesion Labs LABS Laboratory Tests Test 11/03/18 20:19 11/04/18 04:00 11/04/18 04:40 11/04/18 07:44 Glucose (Fingerstick) 124 mg/dL (70-99) 127 mg/dL (70-99) White Blood Count 7.4 x10^3/uL (4.0-11.0) Red Blood Count 4.32 x10^6/uL (4.30-5.70) Hemoglobin 12.1 g/dL (13.0-17.5) Hematocrit 36.1 % (39.0-53.0) Mean Corpuscular Volume 84 fL (79-100) Mean Corpuscular Hemoglobin 28 pg (25-35) Mean Corpuscular Hemoglobin Concent 33 g/dL (31-37) Red Cell Distribution Width 15.3 % (11.5-14.5) Platelet Count 134 x10^3/uL (140-400) Neutrophils (%) (Auto) 77 % (31-73) Lymphocytes (%) (Auto) 11 % (24-48) Monocytes (%) (Auto) 10 % (0-9) Eosinophils (%) (Auto) 2 % (0-3) Basophils (%) (Auto) 1 % (0-3) Neutrophils # (Auto) 5.7 x10^3uL (1.8-7.7) Lymphocytes # (Auto) 0.8 x10^3/uL (1.0-4.8) Monocytes # (Auto) 0.7 x10^3/uL (0.0-1.1) Eosinophils # (Auto) 0.2 x10^3/uL (0.0-0.7) Basophils # (Auto) 0.0 x10^3/uL (0.0-0.2) Sodium Level 137 mmol/L (136-145) Potassium Level 4.0 mmol/L (3.5-5.1) Chloride Level 105 mmol/L (98-107) Carbon Dioxide Level 26 mmol/L (21-32) Anion Gap 6 (6-14) Blood Urea Nitrogen 18 mg/dL (8-26) Creatinine 1.5 mg/dL (0.7-1.3) Estimated GFR (Cockcroft-Gault) 47.0 BUN/Creatinine Ratio 12 (6-20) Glucose Level 131 mg/dL (70-99) Calcium Level 8.9 mg/dL (8.5-10.1) Total Bilirubin 0.5 mg/dL (0.2-1.0) Aspartate Amino Transf (AST/SGOT) 26 U/L (15-37) Alanine Aminotransferase (ALT/SGPT) 36 U/L (16-63) Alkaline Phosphatase 125 U/L (46-116) Total Protein 6.9 g/dL (6.4-8.2) Albumin 3.7 g/dL (3.4-5.0) Albumin/Globulin Ratio 1.2 (1.0-1.7) Lipase 671 U/L (73-393) Test 11/04/18 10:30 11/04/18 11:51 Prothrombin Time 24.2 SEC (11.7-14.0) Prothromb Time International Ratio 2.2 (0.8-1.1) Glucose (Fingerstick) 180 mg/dL (70-99) Assessment and Plan Assessmemt and Plan Problems Medical Problems: (1) Anticoagulated on warfarin Status: Acute (2) Headache Status: Acute (3) Pancreatitis Status: Acute Comment Review of Relevant I have reviewed the following items saurav (where applicable) has been applied. Labs Laboratory Tests Test 11/03/18 06:38 11/03/18 06:58 11/03/18 07:57 11/03/18 10:38 Prothrombin Time 20.7 SEC (11.7-14.0) Prothromb Time International Ratio 1.9 (0.8-1.1) Sodium Level 139 mmol/L (136-145) Potassium Level 4.4 mmol/L (3.5-5.1) Chloride Level 106 mmol/L (98-107) Carbon Dioxide Level 25 mmol/L (21-32) Anion Gap 8 (6-14) Blood Urea Nitrogen 17 mg/dL (8-26) Creatinine 1.4 mg/dL (0.7-1.3) Estimated GFR (Cockcroft-Gault) 50.9 Glucose Level 123 mg/dL (70-99) Calcium Level 9.0 mg/dL (8.5-10.1) Magnesium Level 1.4 mg/dL (1.8-2.4) Iron Level 62 ug/dL (65-175) Total Iron Binding Capacity 311 ug/dL (250-450) Iron Saturation 20 % (15-34) White Blood Count 6.4 x10^3/uL (4.0-11.0) Red Blood Count 4.37 x10^6/uL (4.30-5.70) Hemoglobin 12.0 g/dL (13.0-17.5) Hematocrit 36.9 % (39.0-53.0) Mean Corpuscular Volume 84 fL (79-100) Mean Corpuscular Hemoglobin 28 pg (25-35) Mean Corpuscular Hemoglobin Concent 33 g/dL (31-37) Red Cell Distribution Width 15.6 % (11.5-14.5) Platelet Count 125 x10^3/uL (140-400) Neutrophils (%) (Auto) 75 % (31-73) Lymphocytes (%) (Auto) 12 % (24-48) Monocytes (%) (Auto) 9 % (0-9) Eosinophils (%) (Auto) 3 % (0-3) Basophils (%) (Auto) 0 % (0-3) Neutrophils # (Auto) 4.8 x10^3uL (1.8-7.7) Lymphocytes # (Auto) 0.8 x10^3/uL (1.0-4.8) Monocytes # (Auto) 0.6 x10^3/uL (0.0-1.1) Eosinophils # (Auto) 0.2 x10^3/uL (0.0-0.7) Basophils # (Auto) 0.0 x10^3/uL (0.0-0.2) Glucose (Fingerstick) 130 mg/dL (70-99) 148 mg/dL (70-99) Test 11/03/18 16:26 11/03/18 20:19 11/04/18 04:00 11/04/18 04:40 Glucose (Fingerstick) 99 mg/dL (70-99) 124 mg/dL (70-99) White Blood Count 7.4 x10^3/uL (4.0-11.0) Red Blood Count 4.32 x10^6/uL (4.30-5.70) Hemoglobin 12.1 g/dL (13.0-17.5) Hematocrit 36.1 % (39.0-53.0) Mean Corpuscular Volume 84 fL (79-100) Mean Corpuscular Hemoglobin 28 pg (25-35) Mean Corpuscular Hemoglobin Concent 33 g/dL (31-37) Red Cell Distribution Width 15.3 % (11.5-14.5) Platelet Count 134 x10^3/uL (140-400) Neutrophils (%) (Auto) 77 % (31-73) Lymphocytes (%) (Auto) 11 % (24-48) Monocytes (%) (Auto) 10 % (0-9) Eosinophils (%) (Auto) 2 % (0-3) Basophils (%) (Auto) 1 % (0-3) Neutrophils # (Auto) 5.7 x10^3uL (1.8-7.7) Lymphocytes # (Auto) 0.8 x10^3/uL (1.0-4.8) Monocytes # (Auto) 0.7 x10^3/uL (0.0-1.1) Eosinophils # (Auto) 0.2 x10^3/uL (0.0-0.7) Basophils # (Auto) 0.0 x10^3/uL (0.0-0.2) Sodium Level 137 mmol/L (136-145) Potassium Level 4.0 mmol/L (3.5-5.1) Chloride Level 105 mmol/L (98-107) Carbon Dioxide Level 26 mmol/L (21-32) Anion Gap 6 (6-14) Blood Urea Nitrogen 18 mg/dL (8-26) Creatinine 1.5 mg/dL (0.7-1.3) Estimated GFR (Cockcroft-Gault) 47.0 BUN/Creatinine Ratio 12 (6-20) Glucose Level 131 mg/dL (70-99) Calcium Level 8.9 mg/dL (8.5-10.1) Total Bilirubin 0.5 mg/dL (0.2-1.0) Aspartate Amino Transf (AST/SGOT) 26 U/L (15-37) Alanine Aminotransferase (ALT/SGPT) 36 U/L (16-63) Alkaline Phosphatase 125 U/L (46-116) Total Protein 6.9 g/dL (6.4-8.2) Albumin 3.7 g/dL (3.4-5.0) Albumin/Globulin Ratio 1.2 (1.0-1.7) Lipase 671 U/L (73-393) Test 11/04/18 07:44 11/04/18 10:30 11/04/18 11:51 Glucose (Fingerstick) 127 mg/dL (70-99) 180 mg/dL (70-99) Prothrombin Time 24.2 SEC (11.7-14.0) Prothromb Time International Ratio 2.2 (0.8-1.1) Laboratory Tests Test 11/03/18 20:19 11/04/18 04:00 11/04/18 04:40 11/04/18 07:44 Glucose (Fingerstick) 124 mg/dL (70-99) 127 mg/dL (70-99) White Blood Count 7.4 x10^3/uL (4.0-11.0) Red Blood Count 4.32 x10^6/uL (4.30-5.70) Hemoglobin 12.1 g/dL (13.0-17.5) Hematocrit 36.1 % (39.0-53.0) Mean Corpuscular Volume 84 fL (79-100) Mean Corpuscular Hemoglobin 28 pg (25-35) Mean Corpuscular Hemoglobin Concent 33 g/dL (31-37) Red Cell Distribution Width 15.3 % (11.5-14.5) Platelet Count 134 x10^3/uL (140-400) Neutrophils (%) (Auto) 77 % (31-73) Lymphocytes (%) (Auto) 11 % (24-48) Monocytes (%) (Auto) 10 % (0-9) Eosinophils (%) (Auto) 2 % (0-3) Basophils (%) (Auto) 1 % (0-3) Neutrophils # (Auto) 5.7 x10^3uL (1.8-7.7) Lymphocytes # (Auto) 0.8 x10^3/uL (1.0-4.8) Monocytes # (Auto) 0.7 x10^3/uL (0.0-1.1) Eosinophils # (Auto) 0.2 x10^3/uL (0.0-0.7) Basophils # (Auto) 0.0 x10^3/uL (0.0-0.2) Sodium Level 137 mmol/L (136-145) Potassium Level 4.0 mmol/L (3.5-5.1) Chloride Level 105 mmol/L (98-107) Carbon Dioxide Level 26 mmol/L (21-32) Anion Gap 6 (6-14) Blood Urea Nitrogen 18 mg/dL (8-26) Creatinine 1.5 mg/dL (0.7-1.3) Estimated GFR (Cockcroft-Gault) 47.0 BUN/Creatinine Ratio 12 (6-20) Glucose Level 131 mg/dL (70-99) Calcium Level 8.9 mg/dL (8.5-10.1) Total Bilirubin 0.5 mg/dL (0.2-1.0) Aspartate Amino Transf (AST/SGOT) 26 U/L (15-37) Alanine Aminotransferase (ALT/SGPT) 36 U/L (16-63) Alkaline Phosphatase 125 U/L (46-116) Total Protein 6.9 g/dL (6.4-8.2) Albumin 3.7 g/dL (3.4-5.0) Albumin/Globulin Ratio 1.2 (1.0-1.7) Lipase 671 U/L (73-393) Test 11/04/18 10:30 11/04/18 11:51 Prothrombin Time 24.2 SEC (11.7-14.0) Prothromb Time International Ratio 2.2 (0.8-1.1) Glucose (Fingerstick) 180 mg/dL (70-99) Microbiology 11/02/18 Urine Culture - Final, Complete 11/02/18 Urine Culture Result 1 (MIRIAN) - Final, Complete Medications Current Medications Morphine Sulfate (Morphine Sulfate) 4 mg PRN Q15MIN PRN IV/SQ PAIN GREATER THAN 3/10; Start 11/02/18 at 06:15; Stop 11/02/18 at 08:57; Status DC Sodium Chloride 1,000 ml @ 1,000 mls/hr Q1H IV Last administered on 11/02/18at 07:47; Start 11/02/18 at 06:10; Stop 11/02/18 at 07:09; Status DC Acetaminophen (Tylenol) 1,000 mg 1X ONCE PO Last administered on 11/02/18at 07: 49; Start 11/02/18 at 07:45; Stop 11/02/18 at 07:47; Status DC Ondansetron HCl (Zofran) 4 mg PRN Q8HRS PRN IV NAUSEA/VOMITING Last administered on 11/02/18at 14:21; Start 11/02/18 at 09:00; Stop 11/02/18 at 16:09 ; Status DC Morphine Sulfate (Morphine Sulfate) 4 mg PRN Q2HR PRN IV PAIN Last administered on 11/02/18at 14:11; Start 11/02/18 at 09:00; Stop 11/02/18 at 16:09 ; Status DC Amlodipine Besylate (Norvasc) 5 mg DAILY PO Last administered on 11/04/18at 08: 13; Start 11/02/18 at 16:00; Stop 11/04/18 at 13:13; Status DC Atorvastatin Calcium (Lipitor) 10 mg QHS PO ; Start 11/02/18 at 21:00; Status Cancel Vitamin D (Vitamin D3) 1,000 unit DAILY PO ; Start 11/03/18 at 09:00; Stop 11/03 at 09:00; Status DC Fluticasone Propionate (Flonase) 2 spray DAILY NS ; Start 11/03/18 at 09:00 Glimepiride (Amaryl) 2 mg DAILY PO Last administered on 11/04/18at 08:10; Start 11/03/18 at 09:00 Lurasidone HCl (Latuda) 40 mg QHS PO Last administered on 11/02/18at 21:38; Start 11/02/18 at 21:00; Stop 11/03/18 at 22:46; Status DC Metoprolol Tartrate (Lopressor) 25 mg BID PO Last administered on 11/03/18at 08: 33; Start 11/02/18 at 21:00; Stop 11/04/18 at 13:11; Status DC Oxycodone/ Acetaminophen (Percocet 10/325) 1 tab PRN BID PRN PO SEVERE PAIN; Start 11/02/18 at 15:15 Potassium Chloride (Klor-Con) 20 meq QODAY PO Last administered on 11/03/18at 08 :31; Start 11/03/18 at 09:00 Non-Formulary Medication (Fluticasone/ Salmeterol (Advair 250-50 Diskus)) 1 puff BID IH ; Start 11/02/18 at 21:00; Status UNV Warfarin Sodium (Coumadin) 10 mg DAILY16 PO ; Start 11/02/18 at 16:00; Stop 11/02/18 at 17:36; Status DC Acetaminophen (Tylenol) 650 mg PRN Q6HRS PRN PO FEVER; Start 11/02/18 at 15:15 Ondansetron HCl (Zofran) 4 mg PRN Q6HRS PRN IV NAUSEA/VOMITING Last administered on 11/03/18at 14:35; Start 11/02/18 at 15:15 Morphine Sulfate (Morphine Sulfate) 2 mg PRN Q2HR PRN IV MODERATE TO SEVERE PAIN; Start 11/02/18 at 15:15 Tramadol HCl (Ultram) 50 mg PRN Q6HRS PRN PO MILD TO MODERATE PAIN; Start 11/02 at 15:15 Docusate Sodium (Colace) 100 mg PRN DAILY PRN PO CONSTIPATION Last administered on 11/04/18at 17:21; Start 11/02/18 at 15:15 Labetalol HCl (Normodyne Iv Push) 20 mg PRN Q2HR PRN IVP HYPERTENSION, SEE COMMENTS; Start 11/02/18 at 15:15 Pantoprazole Sodium (Protonix) 40 mg DAILYAC PO Last administered on 11/04/18at 08:12; Start 11/02/18 at 16:30 Insulin Human Lispro (HumaLOG) 0-9 UNITS TIDWMEALS SQ Last administered on 11/04at 12:13; Start 11/02/18 at 17:00 Dextrose (Dextrose 50%-Water Syringe) 12.5 gm PRN Q15MIN PRN IV SEE COMMENTS; Start 11/02/18 at 15:15 Warfarin Sodium (Coumadin Per Physician) 1 each PRN DAILY PRN MC SEE COMMENTS Last administered on 11/02/18at 16:26; Start 11/02/18 at 16:15; Stop 11/02/18 at 17:35; Status DC Albuterol Sulfate (Ventolin Neb Soln) 2.5 mg Q6HRS NEB Last administered on 11/03/18at 20:33; Start 11/02/18 at 18:00; Stop 11/03/18 at 22:44; Status DC Budesonide (Pulmicort) 0.5 mg RTBID NEB Last administered on 11/04/18 08:09; Start 11/02/18 at 20:00 Alprazolam (Xanax) 0.25 mg PRN BID PRN PO ANXIETY; Start 11/02/18 at 17:30 Atorvastatin Calcium (Lipitor) 20 mg HS PO Last administered on 11/03/18at 20:23 ; Start 11/02/18 at 21:00 Bupropion HCl (Wellbutrin Sr) 100 mg DAILYWBKFT PO Last administered on at 08:09; Start 11/03/18 at 08:00 Vitamin D (Vitamin D3) 2,000 unit DAILY PO Last administered on 11/04/18 08:10 ; Start 11/03/18 at 09:00 Furosemide (Lasix) 40 mg DAILY PO Last administered on 11/04/18at 08:10; Start 11/03/18 at 09:00 Temazepam (Restoril) 15 mg PRN QHS PRN PO INSOMNIA; Start 11/02/18 at 17:30 Warfarin Sodium (Coumadin Per Pharmacy) 1 each PRN DAILY PRN MC SEE COMMENTS Last administered on 11/04/18 16:13; Start 11/02/18 at 17:45 Non-Formulary Medication (Doxepin Hcl (Silenor)) 6 mg HS PO ; Start 11/02/18 at 21:00; Status UNV [place] Carbonate (Lithobid) 900 mg QHS PO ; Start 11/02/18 at 21:00; Stop 11/03 at 22:46; Status DC Metformin HCl (Glucophage) 1,000 mg BIDWMEALS PO Last administered on at 18:00; Start 11/02/18 at 18:00; Stop 11/03/18 at 23:59; Status DC Non-Formulary Medication (Pantoprazole Sodium (Protonix)) 2 tab DAILY PO ; Start 11/03/18 at 09:00; Status UNV Lisinopril (Prinivil) 20 mg DAILY PO Last administered on 11/04/18at 08:11; Start 11/03/18 at 09:00 Warfarin Sodium (Coumadin) 12 mg 1X WARF ONCE PO Last administered on at 18:00; Start 11/02/18 at 16:00; Stop 11/02/18 at 17:37; Status DC Warfarin Sodium (Coumadin) 12 mg 1X WARF ONCE PO Last administered on at 16:06; Start 11/03/18 at 16:00; Stop 11/03/18 at 16:01; Status DC Magnesium Sulfate/ Dextrose 100 ml @ 25 mls/hr 1X ONCE IV ; Start 11/03/18 at 15:30; Stop 11/03/18 at 15:30; Status DC Magnesium Sulfate 50 ml @ 25 mls/hr Q2H IV Last administered on 11/03/18at 17:28 ; Start 11/03/18 at 15:30; Stop 11/03/18 at 19:29; Status DC Albuterol Sulfate (Ventolin Neb Soln) 2.5 mg RTQID NEB Last administered on 11/04/18at 16:17; Start 11/04/18 at 08:00 Amlodipine Besylate (Norvasc) 5 mg 1X ONCE PO ; Start 11/04/18 at 13:15; Stop 11/04/18 at 13:16; Status DC Metoprolol Tartrate (Lopressor) 12.5 mg BID PO ; Start 11/04/18 at 21:00 Amlodipine Besylate (Norvasc) 10 mg DAILY PO ; Start 11/05/18 at 09:00 Warfarin Sodium (Coumadin) 12 mg 1X WARF ONCE PO Last administered on at 17:18; Start 11/04/18 at 16:00; Stop 11/04/18 at 16:01; Status DC Active Scripts Active Metoprolol Tartrate 25 Mg Tablet 25 Mg PO BID Reported Vitamin D3 (Cholecalciferol (Vitamin D3)) 1,000 Unit Tablet 2 Tab PO DAILY Atorvastatin Calcium 20 Mg Tablet 1 Tab PO HS Bupropion Hcl Sr (Bupropion Hcl) 100 Mg Tablet.er 1 Tab PO DAILYWBKFT Silenor (Doxepin Hcl) 6 Mg Tablet 6 Mg PO HS Temazepam 15 Mg Capsule 2 Cap PO QHS PRN Protonix (Pantoprazole Sodium) 20 Mg Tablet.dr 2 Tab PO DAILY [place] Carbonate 450 Mg Tablet.er 2 Tab PO QHS Warfarin Sodium 1 Mg Tablet 2 Mg PO DAILY Alprazolam 0.25 Mg Tablet 1 Tab PO PRN BID PRN Furosemide 40 Mg Tablet 1 Tab PO DAILY Klor-Con 10 (Potassium Chloride) 10 Meq Tablet.er 20 Meq PO QODAY Oxycodone-Acetaminophen 10-325 (Oxycodone Hcl/Acetaminophen) 1 Each Tablet 1 Tab PO BID PRN Warfarin Sodium 10 Mg Tablet 10 Mg PO DAILY Metformin Hcl 1,000 Mg Tablet 1 Tab PO BID Quinapril Hcl 20 Mg Tablet 20 Mg PO DAILY Vitals/I & O Vital Sign - Last 24 Hours 11/03/18 11/03/18 11/03/18 11/03/18 19:10 19:20 20:20 20:35 Temp 98.1 98.1 Pulse 54 54 Resp 16 B/P (MAP) 140/74 (96) 140/74 Pulse Ox 97 97 O2 Delivery Room Air Room Air Room Air 11/03/18 11/03/18 11/04/18 11/04/18 20:40 23:15 03:00 07:00 Temp 99.0 97.8 98.0 99.0 97.8 98.0 Pulse 56 57 58 Resp 18 18 20 B/P (MAP) 140/79 (99) 144/74 (97) 164/76 (105) Pulse Ox 97 98 96 O2 Delivery Room Air Room Air Room Air Room Air 11/04/18 11/04/18 11/04/18 11/04/18 08:00 08:09 08:11 08:12 Pulse 58 58 B/P (MAP) 164/76 Pulse Ox 97 O2 Delivery Room Air Room Air 11/04/18 11/04/18 11/04/18 11/04/18 08:13 11:00 12:49 13:15 Temp 98.4 98.4 Pulse 58 60 72 Resp 20 B/P (MAP) 164/76 100/65 (77) 122/70 Pulse Ox 100 96 O2 Delivery Room Air Room Air 11/04/18 11/04/18 11/04/18 13:21 15:00 16:18 Temp 97.3 97.3 Pulse 69 63 Resp 20 B/P (MAP) 122/70 (87) 142/83 (102) Pulse Ox 98 97 O2 Delivery Room Air Room Air Intake and Output 11/03/18 11/03/18 11/04/18 15:00 23:00 07:00 Intake Total 270 ml 350 ml 240 ml Balance 270 ml 350 ml 240 ml BOOM SINGER MD Nov 04, 2018 17:33
[2018-11-04] MEDS: NON FORMULARY ITEM (Doxepin Hcl (Silenor) 6 MG) PO SCH (21:00)
[2018-11-04] MEDS: ATORVASTATIN CALCIUM 20 MG TABLET PO SCH (21:55)
[2018-11-05 03:24] VITALS: BP 136/76
[2018-11-05 03:49] LABS: BASO # 0.1 x10^3/uL (0.0-0.2); BASO % 1 % (0-3); EOS # 0.2 x10^3/uL (0.0-0.7); EOS % 3 % (0-3); HEMATOCRIT 36.7 % (39.0-53.0); HEMOGLOBIN 12.1 g/dL (13.0-17.5); LYMPH % 12 % (24-48); MEAN CORPUSCULAR HEMOGLOBIN 28 pg (25-35); MEAN CORPUSCULAR HGB CONC 33 g/dL (31-37); MEAN CORPUSCULAR VOLUME 84 fL (79-100); MONO # 0.8 x10^3/uL (0.0-1.1); MONO % 11 % (0-9); NEUT # 5.7 x10^3uL (1.8-7.7); NEUT % 73 % (31-73); PLATELET COUNT 149 x10^3/uL (140-400); RED BLOOD COUNT 4.37 x10^6/uL (4.30-5.70); RED CELL DISTRIBUTION WIDTH 15.7 % (11.5-14.5); WHITE BLOOD COUNT 7.7 x10^3/uL (4.0-11.0)
[2018-11-05 04:04] LABS: ALBUMIN 3.5 g/dL (3.4-5.0); ALBUMIN/GLOBULIN RATIO 1.1 (1.0-1.7); CALCIUM 8.7 mg/dL (8.5-10.1); CREATININE 1.5 mg/dL (0.7-1.3); POTASSIUM 4.2 mmol/L (3.5-5.1); TOTAL BILIRUBIN 0.5 mg/dL (0.2-1.0); TOTAL PROTEIN 6.8 g/dL (6.4-8.2)
[2018-11-05 07:00] VITALS: BP 147/71
[2018-11-05] MEDS: ALBUTEROL SULFATE 2.5 MG/3 ML NEBU. NEB SCH (08:00)
[2018-11-05] MEDS: INSULIN LISPRO 300 UNITS/3 ML INSULN.PEN. SQ SCH ×2 (08:00→12:07)
[2018-11-05] MEDS: BUDESONIDE 0.5 MG/2 ML NEBU. NEB SCH (08:00)
[2018-11-05] MEDS: buPROPion SR 100 MG TABLET.SA. PO SCH (08:05)
[2018-11-05] MEDS: GLIMEPIRIDE 2 MG TABLET. PO SCH (08:06)
[2018-11-05] MEDS: LISINOPRIL 20 MG TABLET PO SCH (08:06)
[2018-11-05] MEDS: PANTOPRAZOLE 40 MG TABLET.DR. PO SCH (08:06)
[2018-11-05] MEDS: POTASSIUM CHLORIDE 10 MEQ TABLET.ER. PO SCH (08:07)
[2018-11-05] MEDS: FUROSEMIDE 40 MG TABLET. PO SCH (08:07)
[2018-11-05] MEDS: METOPROLOL TART IMMED RELEASE 25 MG TABLET. PO SCH (08:08)
[2018-11-05] MEDS: CHOLECALCIFEROL (VITAMIN D3) 1,000 UNIT TABLET PO SCH (08:08)
[2018-11-05] MEDS ORDERED: amLODIPine BESYLATE 10 MG TABLET PO SCH (09:00)
[2018-11-05] MEDS ORDERED: amLODIPine BESYLATE 5 MG TABLET PO SCH (09:00)
[2018-11-05 11:00] VITALS: BP 123/64
[2018-11-05] MEDS: FLUTICASONE 50MCG/NASAL SPRAY 16GM BOTTLE. NS SCH (12:03)
[2018-11-05] MEDS ORDERED: METO25TA4 PO (12:17)
[2018-11-05] MEDS ORDERED: AMLO5TAB7 PO (12:17)
--- NOTE | 2018-11-05 15:39 | PDOC3 ---
Discharge Summary IPC Final Diagnosis Problems Medical Problems: (1) Anticoagulated on warfarin Status: Acute (2) Headache Status: Acute (3) Pancreatitis Status: Acute Brief Hospital Course Mr. Parks is a 63 old M who presented with: 1. Headache, nausea, vomiting and diarrhea 2. Arrhythmia: brief episodes of appears to be aberrant afib per tele. 3. 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 Notable fo mechanical AVR but also noted with mod to severe MS 4. HTN 5. DM2/HLP 6. Cardiomyopathy/chronic systolic CHF: EF at 40-45% multifactorial. Compensated His Coumadin was continued and the BP was controlled with modification of medication Ok to dc home today to f/u with cards and pcp Patient History: Family history: Cardiovascular disease (situation) G8 BROTHER (HAD LIVER CANCER, STAGE 4, [place] 2012 59 YO) 33 FATHER (DAD HAD PR,HTN,DM , [place] 1993) 32 MOTHER (HAS NEUROPATHY, STENTS IN HEART) G8 SISTER (HAD A STROKE, [place] 2012, 66 YO) Scheduled Amlodipine Besylate (Amlodipine Besylate), 5 MG PO DAILY Atorvastatin Calcium (Atorvastatin Calcium), 1 TAB PO HS, (Reported) Bupropion Hcl (Bupropion Hcl Sr), 1 TAB PO DAILYWBKFT, (Reported) Cholecalciferol (Vitamin D3) (Vitamin D3), 2 TAB PO DAILY, (Reported) Doxepin Hcl (Silenor), 6 MG PO HS, (Reported) Furosemide (Furosemide), 1 TAB PO DAILY, (Reported) [place] Carbonate ([place] Carbonate), 2 TAB PO QHS, (Reported) Metformin Hcl (Metformin Hcl), 1 TAB PO BID, (Reported) Metoprolol Tartrate (Metoprolol Tartrate), 25 MG PO BID Metoprolol Tartrate (Metoprolol Tartrate), 12.5 MG PO BID Pantoprazole Sodium (Protonix), 2 TAB PO DAILY, (Reported) Potassium Chloride (Klor-Con 10), 20 MEQ PO QODAY, (Reported) Quinapril Hcl (Quinapril Hcl), 20 MG PO DAILY, (Reported) Warfarin Sodium (Warfarin Sodium), 10 MG PO DAILY, (Reported) Warfarin Sodium (Warfarin Sodium), 2 MG PO DAILY, (Reported) Scheduled PRN Alprazolam (Alprazolam), 1 TAB PO PRN BID PRN for ANXIETY, (Reported) Oxycodone Hcl/Acetaminophen (Oxycodone-Acetaminophen 10-325), 1 TAB PO BID PRN for PAIN, (Reported) Temazepam (Temazepam), 2 CAP PO QHS PRN for INSOMNIA, (Reported) Discontinued Medications Amlodipine Besylate (Amlodipine Besylate), 5 MG PO DAILY, (Reported) Atorvastatin Calcium (Lipitor), 1 TAB PO DAILY, (Reported) Cholecalciferol (Vitamin D3) (Vitamin D3), 1 TAB PO DAILY, (Reported) Fluticasone Propionate (Fluticasone Propionate Nasal Maddock), 2 SPRAY NS DAILY, ( Reported) Fluticasone/Salmeterol (Advair 250-50 Diskus), 1 PUFF IH BID, (Reported) Glimepiride (Glimepiride), 1 TAB PO DAILY, (Reported) Lurasidone Hcl (Latuda), 1 TAB PO QHS, (Reported) BOOM SINGER MD Nov 05, 2018 15:39
[2018-11-05] MEDS ORDERED: WARFARIN 4 MG TABLET. PO ONE (16:00)
== END 2018-11-05 14:58 | disposition home or self-care (01) | DRG 682 ==
LOC: ER 05:32 → 5 SOUTH 08:35 → 2 NORTH 18:22
PROVIDERS: ADMIT Internal Medicine; ATTEND Internal Medicine
DX: N17.9 Acute kidney failure, unspecified (principal); K85.90 Acute pancreatitis without necrosis or infection, unspecified; I13.0 Hypertensive heart and chronic kidney disease with heart failure and stage 1 through stage 4 chronic kidney disease, or unspecified chronic kidney disease; I42.9 Cardiomyopathy, unspecified; I48.92 Unspecified atrial flutter; I50.22 Chronic systolic (congestive) heart failure; B19.20 Unspecified viral hepatitis C without hepatic coma; E11.22 Type 2 diabetes mellitus with diabetic chronic kidney disease; E78.5 Hyperlipidemia, unspecified; E78.00 Pure hypercholesterolemia, unspecified; F41.9 Anxiety disorder, unspecified; F31.9 Bipolar disorder, unspecified; G44.209 Tension-type headache, unspecified, not intractable; G47.33 Obstructive sleep apnea (adult) (pediatric); I05.0 Rheumatic mitral stenosis; I27.20 Pulmonary hypertension, unspecified; I48.91 Unspecified atrial fibrillation; I49.1 Atrial premature depolarization; I70.0 Atherosclerosis of aorta; K21.9 Gastro-esophageal reflux disease without esophagitis; N18.9 Chronic kidney disease, unspecified; R79.1 Abnormal coagulation profile; Z79.01 Long term (current) use of anticoagulants; Z80.0 Family history of malignant neoplasm of digestive organs; Z82.3 Family history of stroke; Z82.49 Family history of ischemic heart disease and other diseases of the circulatory system; Z86.010 Personal history of colon polyps; Z90.49 Acquired absence of other specified parts of digestive tract; Z95.2 Presence of prosthetic heart valve; Z83.3 Family history of diabetes mellitus; Z79.899 Other long term (current) drug therapy
CPT/HCPCS: 36415; 70450; 71045; 74176; 80048; 80053; 80178; 81001; 82962; 83540; 83550; 83690; 83735; 83880; 84484; 85025; 85610; 85651; 86140; 87086; 87804; 93005; 93306; 94640; 94760; J1815; J2270; J2405; J3475; J7030; J7613; J7626; 99285-25

== ENCOUNTER 2019-08-27 10:08 | Emergency (ER) | payer MEDICARE, MEDICAID ==
[~2019-08-27] VITALS: Ht 154.9 cm; Wt 93.0 kg
[~2019-08-27 10:08] MED LIST changes: +ALPR0.254 PO; +AMLO5TAB10 PO; -AMLO5TAB7 PO; +ATOR20TA58 PO; +BUPR100T8 PO; +DOXE6TAB3 PO; -GLIM2TAB2 PO; +GLIM2TAB3 PO; +LITH450T PO; +PANT20TA2 PO; +SIMV20TA18 PO; -SIMV20TA3 PO; +TEMA15CA PO; +TRAZ-118 PO; -TRAZ-85 PO; +WARF1TAB69 PO
[2019-08-27 10:33] VITALS: BP 159/80
--- NOTE | 2019-08-27 11:21 | PHYS DOC ---
Past Medical History Past Medical History: Depression, Diabetes-Type II, High Cholesterol, Hyp ertension, Other Additional Past Medical Histor: heart valve defect from Past Surgical History: Cholecystectomy, Other Additional Past Surgical Histo: AORTIC AND PULMONARY VALVE REPLACEMENT x3; hernia Alcohol Use: None Drug Use: None Adult General Chief Complaint Chief Complaint: EYE PROBLEMS HPI HPI Patient is a 64 year old male that presents to the ER stating that he's been having bilateral eye swelling has been ongoing for 3 days. The patient states he had a another episode of this 6 months ago and that his doctor took him off lisinopril as a thought it might be related. Also states that his eyes been watering. Denies any other symptoms. Denies pain. Denies blurry vision. Review of Systems Review of Systems Constitutional: Denies fever or chills [] Eyes: Denies change in visual acuity, redness, or eye pain [] HENT: Reports bilateral watery eyes and edema. Denies nasal congestion or sore throat [] Respiratory: Denies cough or shortness of breath [] Cardiovascular: No additional information not addressed in HPI [] GI: Denies abdominal pain, nausea, vomiting, bloody stools or diarrhea [] : Denies dysuria or hematuria [] Musculoskeletal: Denies back pain or joint pain [] Integument: Denies rash or skin lesions [] Neurologic: Denies headache, focal weakness or sensory changes [] Endocrine: Denies polyuria or polydipsia [] Complete systems were reviewed and found to be within normal limits, except as documented in this note. Allergies Allergies Allergies Coded Allergies Type Severity Reaction Last Updated Verified zolpidem Allergy Intermediate 11/02/18 Yes Physical Exam Physical Exam Constitutional: Well developed, well nourished, no acute distress, non-toxic appearance. [] HENT: Normocephalic, atraumatic, bilateral external ears normal, oropharynx moist, no oral exudates, nose normal. [] Eyes: PERRLA, EOMI, conjunctiva normal, no discharge. inferior orbital edema mild. Neck: Normal range of motion, no tenderness, supple, no stridor. [] Cardiovascular:Heart rate regular rhythm, no murmur [] Lungs & Thorax: Bilateral breath sounds clear to auscultation [] Abdomen: Bowel sounds normal, soft, no tenderness, no masses, no pulsatile masses. [] Skin: Warm, dry, no erythema, no rash. [] Back: No tenderness, no CVA tenderness. [] Extremities: No tenderness, no cyanosis, no clubbing, ROM intact, no edema. [] Neurologic: Alert and oriented X 3, normal motor function, normal sensory function, no focal deficits noted. [] Psychologic: Affect normal, judgement normal, mood normal. [] Current Patient Data Vital Signs Vital Signs Date Time Temp Pulse Resp B/P (MAP) Pulse Ox O2 Delivery O2 Flow Rate FiO2 08/27/19 10:33 98.1 61 16 159/80 (106) 95 Room Air 98.1 EKG EKG [] Radiology/Procedures Radiology/Procedures [] Course & Med Decision Making Course & Med Decision Making Pertinent Labs and Imaging studies reviewed. (See chart for details) Discuss that the possible causes of this could be due to allergies. Recommended to go home and try Benadryl. If this works I recommended to start taking Zyrtec daily. Dragon Disclaimer Dragon Disclaimer This electronic medical record was generated, in whole or in part, using a voice recognition dictation system. Departure Departure Impression: Primary Impression: Swelling of eye, bilateral Disposition: HOME, SELF-CARE Condition: STABLE Referrals: RAYMON BATRES MD (PCP) Additional Instructions: Thank you for visiting [facility]. We appreciate you trusting us with your care. If any additional problems come up don't hesitate to return to visit us. Please follow up with your primary care provider so they can plan additional care if needed and know about the problem that you had. If symptoms worsen come back to the Emergency Department. Any concerning symptoms that start such as chest pain, shortness of air, weakness or numbness on one side of the body, running high fevers or any other concerning symptoms return to the ER. Please try Benadryl at home per label instructions to see if improves. If does take Zyrtec daily per label instructions. RACHELLE GUIDRY APRN Aug 27, 2019 11:21
== END 2019-08-27 11:27 | disposition home or self-care (01) ==
LOC: ER 10:08
DX: H05.223 Edema of bilateral orbit (principal); F32.9 Major depressive disorder, single episode, unspecified; E11.9 Type 2 diabetes mellitus without complications; E78.00 Pure hypercholesterolemia, unspecified; I10 Essential (primary) hypertension; Z90.49 Acquired absence of other specified parts of digestive tract; Z88.8 Allergy status to other drugs, medicaments and biological substances
CPT/HCPCS: 99281

== ENCOUNTER 2021-02-22 15:26 | Emergency (ER) | payer MEDICARE ==
[~2021-02-22] VITALS: Ht 154.9 cm; Wt 85.0 kg
[~2021-02-22 15:26] MED LIST changes: +ALPR2TAB5 PO; +AMLO-186 PO; -AMLO5TAB10 PO; +CHOL200027 PO; +DIPH1TAB5 PO; -GLIM2TAB3 PO; +GLIM2TAB7 PO; +ISOS30TA68 PO; +LURA80TA PO; -OXYC-411 PO; +OXYC1TAB20 PO; +SERT-268 PO; -SERT100T8 PO; +TAMS0.4C97 PO; +TOLT4CAP12 PO; +TORS20TA2 PO
[2021-02-22 15:40] VITALS: BP 150/79
[2021-02-22 16:06] LABS: BILIRUBIN,URINE NEGATIVE (NEG); CLARITY,URINE CLEAR; COLOR,URINE YELLOW; NITRITE,URINE NEGATIVE (NEG); PROTEIN,URINE NEGATIVE (NEG-TRACE); UROBILINOGEN,URINE 0.2 mg/dL (0.2 mg/dL)
[2021-02-22 16:15] LABS: BACTERIA,URINE 0 /HPF (0-FEW); RBC,URINE 0 /HPF (0-2); WBC,URINE 0 /HPF (0-4)
[2021-02-22] MEDS ORDERED: MORPHINE SULFATE 4 MG/ML VIAL. IV ONE (16:30)
[2021-02-22] MEDS ORDERED: ONDANSETRON PF 4 MG/2 ML VIAL. IVP ONE (16:30)
[2021-02-22 16:41] LABS: BASO % 1 % (0-3); EOS # 0.1 x10^3/uL (0.0-0.7); EOS % 2 % (0-3); HEMATOCRIT 36.7 % (39.0-53.0); HEMOGLOBIN 11.7 g/dL (13.0-17.5); LYMPH # 0.7 x10^3/uL (1.0-4.8); LYMPH % 15 % (24-48); MEAN CORPUSCULAR HEMOGLOBIN 28 pg (25-35); MEAN CORPUSCULAR HGB CONC 32 g/dL (31-37); MEAN CORPUSCULAR VOLUME 88 fL (79-100); MONO # 0.6 x10^3/uL (0.0-1.1); MONO % 13 % (0-9); NEUT # 3.2 x10^3/uL (1.8-7.7); NEUT % 69 % (31-73); PLATELET COUNT 150 x10^3/uL (140-400); RED CELL DISTRIBUTION WIDTH 16.3 % (11.5-14.5); WHITE BLOOD COUNT 4.7 x10^3/uL (4.0-11.0)
--- NOTE | 2021-02-22 16:48 | PHYS DOC ---
Past Medical History Past Medical History: Bipolar, Depression, Diabetes-Type II, High Cholesterol, Hypertension, Renal Disease, Other Additional Past Medical Histor: heart valve defect from Past Surgical History: Cholecystectomy, Other Additional Past Surgical Histo: AORTIC AND PULMONARY VALVE REPLACEMENT x3; hernia Smoking Status: Former Smoker Alcohol Use: None Drug Use: None General Adult EDM: Chief Complaint: ABDOMINAL PAIN HPI: HPI: Patient is a 66 year old male who presented to ER due to abdominal pain has been going on off and on for 1 month. Patient has history of bipolar disorder, he has been taking lithium for about 4 months but recently due to the abdominal pain his doctor had instructed him to start taking the lithium. Patient denies any cough or fever. Patient denies any blood in his stool. Patient denies any chest pain or any trouble breathing. Patient describes abdominal pain as cramping in nature. Review of Systems: Review of Systems: Constitutional: Denies fever or chills. [] Eyes: Denies change in visual acuity. [] HENT: Denies nasal congestion or sore throat. [] Respiratory: Denies cough or shortness of breath. [] Cardiovascular: Denies chest pain or edema. [] GI: Positive for abdominal pain, associate with nausea but no vomiting, no diarrhea.. [] : Denies dysuria. [] Musculoskeletal: Denies back pain or joint pain. [] Integument: Denies rash. [] Neurologic: Denies headache, focal weakness or sensory changes. [] Endocrine: Denies polyuria or polydipsia. [] Lymphatic: Denies swollen glands. [] Psychiatric: Denies depression or anxiety. [] Heart Score: C/O Chest Pain: N/A Risk Factors: Risk Factors: DM, Current or recent (<one month) smoker, HTN, HLP, family history of CAD, obesity. Risk Scores: Score 0 - 3: 2.5% MACE over next 6 weeks - Discharge Home Score 4 - 6: 20.3% MACE over next 6 weeks - Admit for Clinical Observation Score 7 - 10: 72.7% MACE over next 6 weeks - Early Invasive Strategies Current Medications: Current Medications Medications (Trade) Dose Ordered Sig/Esdras Start Time Stop Time Status Last Admin Dose Admin Morphine Sulfate (Morphine Sulfate) 4 mg 1X ONCE 02/22/21 16:30 02/22/21 16:31 DC Ondansetron HCl (Zofran) 4 mg 1X ONCE 02/22/21 16:30 02/22/21 16:31 DC Allergies: Allergies: Allergies Coded Allergies Type Severity Reaction Last Updated Verified zolpidem Allergy Intermediate 11/02/18 Yes Physical Exam: PE: Constitutional: Well developed, well nourished, no acute distress, non-toxic appearance. [] HENT: Normocephalic, atraumatic, bilateral external ears normal, oropharynx moist, no oral exudates, nose normal. [] Eyes: PERRLA, EOMI, conjunctiva normal, no discharge. [] Neck: Normal range of motion, no tenderness, supple, no stridor. [] Cardiovascular:Heart rate regular rhythm, no murmur [] Lungs & Thorax: Bilateral breath sounds clear to auscultation [] Abdomen: Bowel sounds normal, soft, there is tenderness to palpation in periumbilical area, epigastric area, no masses, no pulsatile masses. [] Skin: Warm, dry, no erythema, no rash. [] Back: No tenderness, no CVA tenderness. [] Extremities: No tenderness, no cyanosis, no clubbing, ROM intact, no edema. [] Neurologic: Alert and oriented X 3, normal motor function, normal sensory function, no focal deficits noted. [] Psychologic: Affect normal, judgement normal, mood normal. [] Current Patient Data: Labs: Laboratory Tests Test 02/22/21 15:45 Urine Collection Type Void Urine Color Yellow Urine Clarity Clear Urine pH 5.0 (<5.0-8.0) Urine Specific [place] 1.010 (1.000-1.030) Urine Protein Negative mg/dL (NEG-TRACE) Urine Glucose (UA) Negative mg/dL (NEG) Urine Ketones (Stick) Negative mg/dL (NEG) Urine Blood Negative (NEG) Urine Nitrite Negative (NEG) Urine Bilirubin Negative (NEG) Urine Urobilinogen Dipstick 0.2 mg/dL (0.2 mg/dL) Urine Leukocyte Esterase Negative (NEG) Urine RBC 0 /HPF (0-2) Urine WBC 0 /HPF (0-4) Urine Squamous Epithelial Cells Occ /LPF Urine Bacteria 0 /HPF (0-FEW) Urine Mucus Slight /LPF Vital Signs: Vital Signs Date Time Temp Pulse Resp B/P (MAP) Pulse Ox O2 Delivery O2 Flow Rate FiO2 02/22/21 15:40 98.1 65 20 150/79 (102) 97 Room Air 98.1 EKG: EKG: [] Radiology/Procedures: Radiology/Procedures: [][facility] [address] [place] [address] IMAGING REPORT Signed PATIENT: LINA WALKER ACCOUNT: [id number] : 1955 LOCATION: ER AGE: 66 SEX: M EXAM STATUS: REG ER ORD. PHYSICIAN: KRISH PADILLA DO REASON: abdominal pain PROCEDURE: CT ABDOMEN PELVIS WO CONTRAST Exam: CT of abdomen and pelvis without contrast INDICATION: Abdominal pain TECHNIQUE: Sequential axial images through the abdomen and pelvis obtained without IV contrast. Sagittal and coronal reformatted images were reconstructed from the axial data and reviewed. Comparisons: 11/03/2018 FINDINGS: Heart size is normal. No pericardial effusion. Visualized lung bases are clear. No pleural effusion. Evaluation of the solid organs is limited secondary to noncontrast technique. Th ere is mild nodular contour the liver. Spleen, pancreas, and adrenals are unremarkable. Gallbladder surgically absent. No perinephric inflammation or hydronephrosis. No renal or ureteral calculi are identified. Bladder is partially distended and not well evaluated. Prostate is not enlarged. Scattered diverticulosis is noted in the sigmoid colon without evidence of acute diverticulitis. Remainder large and small bowel are unremarkable. Appendix normal. No free intra-abdominal air or fluid. No obstruction. Abdominal aorta has a normal course and caliber. No enlarged intra-abdominal lymph nodes are identified. No suspicious osseous lesions or acute fractures. IMPRESSION: No acute process identified within the abdomen or pelvis. Exposure: One or more of the following in the visualized dose reduction techniques were utilized for this examination: 1. Automated exposure control 2. Adjustment of the MA and/or KV according to patient size 3. Use of iterative of reconstructive technique Electronically signed by: Susan Bui MD (02/22/2021 5:39 PM) [facility] DICTATED and SIGNED BY: SUSAN BUI MD DATE: 02/22/21 [id number] 0 Course & Med Decision Making: Course & Med Decision Making Pertinent Labs and Imaging studies reviewed. (See chart for details) Patient is a 66-year-old male who presented to ER due to abdominal pain off and on for 1 month, his kidney function is abnormal 2.7. Patient said he noted had to kidney problem, his doctor is set him up to see a kidney doctor. Patient will be discharged home and he will need to see his doctor this week. Dragon Disclaimer: Dragon Disclaimer: This electronic medical record was generated, in whole or in part, using a voice recognition dictation system. Departure Departure Impression: Primary Impression: Abdominal pain Additional Impression: Acute renal insufficiency Disposition: DC HOME SELF CARE/HOMELESS Condition: STABLE Referrals: RAYMON BATRES MD (PCP) Please follow up with your doctor next week for a referral to a kidney doctor about your abnormal kidney function test today. Patient Instructions: Abdominal Pain, Acute Kidney Injury Additional Instructions: Thank you for visiting our Emergency Department. We appreciate you trusting us with your care. If any additional problems come up don't hesitate to return to visit us. Please follow up with your primary care provider so they can plan additional care if needed and know about the problem that you had. If symptoms worsen come back to the Emergency Department. Any concerning symptoms that start such as chest pain, shortness of air, weakness or numbness on one side of the body, running high fevers or any other concerning symptoms return to the ER. KRISH PADILLA DO Feb 22, 2021 16:48
[2021-02-22 16:54] LABS: PROTHROMBIN TIME PATIENT 14.1 SEC (11.7-14.0)
[2021-02-22 16:56] LABS: CALCIUM 8.5 mg/dL (8.5-10.1); CREATININE 2.7 mg/dL (0.7-1.3); GFR 23.6; POTASSIUM 4.7 mmol/L (3.5-5.1)
[2021-02-22 17:10] LABS: ALBUMIN 3.7 g/dL (3.4-5.0); ALBUMIN/GLOBULIN RATIO 1.1 (1.0-1.7); MAGNESIUM 1.6 mg/dL (1.8-2.4); TOTAL BILIRUBIN 0.7 mg/dL (0.2-1.0); TOTAL PROTEIN 7.1 g/dL (6.4-8.2)
[2021-02-22] MEDS ORDERED: IV NORMAL SALINE 1000ML BAG 1,000 ML IV ONE (17:15)
--- NOTE | 2021-02-22 17:42 | RAD ---
Exam: CT of abdomen and pelvis without contrast INDICATION: Abdominal pain TECHNIQUE: Sequential axial images through the abdomen and pelvis obtained without IV contrast. Sagit thuan and coronal reformatted images were reconstructed from the axial data and reviewed. Comparisons: 11/03/2018 FINDINGS: Heart size is normal. No pericardial effusion. Visualized lung bases are clear. No pleural effusion. Evaluation of the solid organs is limited secondary to noncontrast technique. There is mild nodular c ontour the liver. Spleen, pancreas, and adrenals are unremarkable. Gallbladder surgically absent. No perinephric inflammation or hydronephrosis. No renal or ureteral calculi are identified. Bladder is partially distended and not well evaluated. Prostate is not enlarged. Scattered diverticulosis is noted in the sigmoid colon without evidence of acute diverticulitis. Callie sweetie large and small bowel are unremarkable. Appendix normal. No free intra-abdominal air or fluid. No obstruction. Abdominal aorta has a normal course and caliber. No enlarged intra-abdominal lymph nodes are identified. No suspicious osseous lesions or acute fractures. IMPRESSION: No acute process identified within the abdomen or pelvis. Exposure: One or more of the following in the visualized dose reduction techniques were utilized for this examination: 1. Automated exposure control 2. Adjustment of the MA and/or KV according to patient size 3. Use of iterative of reconstructive technique Electronically signed by: Susan Issa MD (02/22/2021 5:39 PM) [facility]
== END 2021-02-22 19:40 | disposition home or self-care (01) ==
LOC: ER 15:26
DX: R10.84 Generalized abdominal pain (principal); N28.9 Disorder of kidney and ureter, unspecified; R11.0 Nausea
CPT/HCPCS: 36415; 74176; 80053; 81001; 83690; 83735; 85025; 85610; 85730; 96361; 96374; 96375; 99284; J2270; J2405; J7030